=== PATIENT | female | born 1955 | race Caucasian/White ===

== ENCOUNTER 2018-01-02 12:43 | Inpatient (IN) | payer OTHER ==
[~2018-01-02] VITALS: Ht 160 cm; Wt 66.5 kg
[2018-01-02] VITALS (7 sets, daily range): BP systolic 87–122; BP diastolic 44–78
--- NOTE | ~2018-01-02 | CON ---
[place], [place] REPORT OF CONSULTATION NAME: RIMMA MEJIA UNIT #: [id number] ROOM: [facility] DOCTOR: BEN ANTON MD BIRTHDATE: [birth year] DOS: 01/02/2018 HISTORY OF PRESENT ILLNESS: A 61-year-old patient, who was presented with chief complaint of nausea, not feeling well, weakness. The patient is known aggressive alcohol consumer as late as last night, aggressive nicotine consumer as well. The patient has presented to the Emergency Room with. A basic panel of blood work was done. GFR greater than 60. Sodium 119, potassium 3.0, chloride 70, glucose of 100 and her liver function tests. Her C-reactive protein 3.8 and magnesium 1.9 and total protein 6.8, which is matching with her albumin of 2.4 as well as a low calcium of 8.2. Her chest x-ray, normal. CT scan of the abdomen and pelvis, severe hepatic steatosis and small amount of ascites. PAST MEDICAL HISTORY: She says none, but however, she is suffering from COPD secondary to her smoking habit and she apparently uses inhalers. PAST SURGICAL HISTORY: She mentions and left wrist surgical repair. SOCIAL HISTORY: At least a 2-pack of smoker and 2-6 pack beer drinker. FAMILY HISTORY: Noncontributory. ALLERGIES: PENICILLIN AND ASPIRIN. MEDICATIONS: She says none except inhalers. REVIEW OF SYSTEMS: HEENT: Denies double vision, blurred vision. RESPIRATORY: Admits to shortness of breath, cough. CARDIOVASCULAR: Denies chest pain. DIGESTIVE SYSTEM: No hematemesis, no hematochezia has been mentioned. PHYSICAL EXAMINATION: VITAL SIGNS: Stable. Alert and oriented. HEENT: Within normal limits and head nontraumatic. Eyes: Pupils round, reactive. Sclerae are icteric, conjunctiva pink. Mouth and buccal mucosa and most of her teeth extracted. No aphthae ulceration noticed. LUNGS: Anteroposterior wheezing and rhonchi. HEART: Normal sinus rhythm, no gallop, no murmur. ABDOMEN: Soft. No hepato-organomegaly edge of the liver and spleen cannot be palpated. Bowel sounds within normal limits. No rebound effect. EXTREMITIES: No cyanosis, no pedal edema. There is some stasis, dermatitis upper and lower extremities. NEUROLOGIC: Alert, oriented to time, place, person. She is not suffering from tremens. 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 We need to correct the sodium with normal saline at the present time and after adequate delivery of the saline with a sodium moiety then we will recheck the sodium level to correct his severe hyponatremia. We will also consider followup [place], [place] REPORT OF CONSULTATION NAME: RIMMA MEJIA UNIT #: [id number] ROOM: [facility] DOCTOR: SLOANE MEMBRENO,BEN BIRTHDATE: [birth year] on LFTs. Serum ammonia level, serum phosphorus level due to the concern that secondary to the rhonchi and wheezes anteroposteriorly in lung. We are going to follow up chest x-ray if anything infiltration noticed them and we will get a CT scan of the chest on her and we will feed her regular diet and we will consider a soft detox coverage for her and since her last drink was last night, and she is a daily drinker and multivitamin would be in order. We proceed with alpha fetoprotein scanning and clinical reassessment. BEN ANTON MD CM:CONSTR:REPORT OF CONSULTATION 1654 01/03/18 0245 interface
--- NOTE | ~2018-01-02 | EKG ---
[place], [place] ELECTROCARDIOGRAM REPORT NAME: RIMMA MEJIA UNIT #: [id number] ROOM: [facility] DOCTOR: LUCINDA DRAFT REPORT BIRTHDATE: [birth year] [facility] Test Date: 2018-01-02 Test Time: 13:16:41 Pat Name: RIMMA MEJIA Department: Room: [facility] Gender: F Vamp Strap Ironer: Karena Gray : 1955 Requested By: HAYES RODRIGUEZ Order Number: [id number] Reading MD: Andrea Luque MD Measurements Intervals Balm Rate: 88 P: 66 [place]: 137 QRS: -4 QRSD: 145 T: 65 QT: 408 QTc: 494 Interpretive Statements Sinus rhythm Nonspecific intraventricular conduction delay Inferior infarct, old No previous ECG available for comparison Electronically Signed On 01-03-2018 13:37:03 PDT by Andrea Luque MD CM:EKGRPT:ELECTROCARDIOGRAM REPORT 1316 1337 HAYES EDWARDS DRAFT REPORT HAEYS RODRIGUEZ DO
--- NOTE | ~2018-01-02 | O ---
[place], [place] OPERATIVE NOTE NAME: RIMMA MEJIA UNIT #: [id number] ROOM: 403 DOCTOR: BEN ANTON MD BIRTHDATE: [birth year] DOS: 01/07/2018 HISTORY OF PRESENT ILLNESS: A 62-year-old patient who has presented with chief complaint of hematemesis, anemia, guaiac positivity, and cirrhosis, etiology of alcohol. PROCEDURE: Today's procedure part of investigation is panendoscopy plus biopsy. PREMEDICATION: Propofol. SCOPE: Olympus forward-viewing gastroscope Q10 video. REPORT: After putting the patient in left lateral position and application of lubricant to the scope, the scope was introduced. Thereafter, under direct visualization, advanced through the length of esophagus without difficulty. Diffuse esophageal ulceration in cervical, thoracic, and distal esophagus identified, photographed and biopsied. Hiatal hernia of 3.5 cm was noticed. Gastric pouch was entered. Gastritis and diffuse pattern hemorrhagic type was noticed. Biopsy obtained, photographed. Duodenal bulb, second and third part within normal limits. The patient extubated, tolerated the procedure well. IMPRESSION: Diffuse esophageal ulceration secondary to reflux, hemorrhagic gastritis secondary to alcohol history. PLAN AND DISCUSSION: We are going to continue with Protonix 40 mg IV b.i.d., sucralfate 2 grams slurry q.6 hours, 2 hours before meals and at bedtime. BEN ANTON MD CM:OPRECORD:OPERATIVE NOTE 1224 [id number] BEN ANTON MD 01/07/18 1340 interface
[~2018-01-02 12:43] MED LIST: FLEXERIL10 MG PO; HYDROCODONE BIT1 T11 PO; PRILOSEC20 M1 PO; PROAIR HFA0.09 MG/AC INH; SYMBICORT1 AE1 INH; ZANTAC150 MG PO
[2018-01-02 13:31] LABS: HEMATOCRIT 29.9 % (37.0-47.0); HEMOGLOBIN 10.9 g/dl (12.0-16.0); MEAN CELL VOLUME 94.6 fl (81.0-99.0); MEAN CORPUSCULAR HGB 34.5 pg (27.0-31.0); MEAN CORPUSCULAR HGB CONC 36.5 g/dl (33.0-37.0); MEAN PLATELET VOLUME 10.5 fl (9.6-12.3); NUCLEATED RED BLOOD CELL 0.1 10*3/uL (0.0-0.0); NUCLEATED RED BLOOD CELL 1.2 % (0.0-0.0); PLATELET COUNT AUTOMATED 115 10*3/uL (130-400); RED BLOOD COUNT 3.16 10*6/uL (4.10-5.10); RED CELL DISTRI WIDTH 15.7 % (0-14.5)
[2018-01-02 13:36] LABS: INTERNATIONAL NORM RATIO 1.5 (2.0-3.5)
[2018-01-02 13:38] LABS: ACT PARTIAL THROMBO TIME 28.3 SECONDS (20.8-31.5)
[2018-01-02 13:42] LABS: ALBUMIN 2.4 gm/dl (3.1-4.5); ALKALINE PHOSPHATASE 216 U/L (45-117); BUN 12 mg/dl (7-24); CREATININE 0.63 mg/dL (0.55-1.02); LIPASE 47 U/L (73-393); SGOT/AST 156 IU/L (3-35); SGPT/ALT 56 U/L (12-78); TOTAL PROTEIN 6.8 gm/dL (6.4-8.2); TROPONIN I 0.016 ng/ml (<0.045)
[2018-01-02 13:45] LABS: PLATELET SUFFICIENCY LOW (NORMAL); TARGET CELLS MODERATE; TOTAL CELLS COUNTED 100 #CELLS
[2018-01-02 13:46] LABS: CHLORIDE 70 mmol/L (98-107); POLYCHROMASIA SLIGHT; WHITE BLOOD COUNT 10.2 10*3/uL (4.8-10.8)
[2018-01-02 13:47] LABS: SODIUM 119 mmol/L (136-145)
[2018-01-02 17:45] LABS: BILIRUBIN 3+ (NEGATIVE); BLOOD 2+ (NEGATIVE); CLARITY SL CLOUDY (CLEAR); COLOR ORANGE (YELLOW); GLUCOSE TRACE (NEGATIVE); KETONE 1+ (NEGATIVE); NITRITE POSITIVE (NEGATIVE); PH 6.5 (5.0-9.0); SPECIFIC GRAVITY <= 1.005 (1.005-1.030); UROBILINOGEN >= 8.0 E.U./dl (0.2-1.0)
[2018-01-02 17:58] LABS: LEUKO ESTERASE TRACE (NEGATIVE)
[2018-01-02 17:59] LABS: BACTERIA 1+; EPITHELIAL CELLS TNTC; URINE AMPHETAMINES < 1000 (1000ng/ml); URINE BARBITURATES < 200 (200ng/ml); URINE BENZODIAZEPINES < 200 (200ng/ml); URINE CANNABINOIDS (THC) < 50 (50ng/ml); URINE COCAINE < 300 (300ng/ml); URINE METHADONE < 300 (300ng/ml); URINE OPIATES < 300 (300ng/ml)
[2018-01-02 18:01] LABS: URINE CHLORIDE, RANDOM < 10 mmol/L; URINE PHENCYCLIDINE < 25 (25ng/ml)
[2018-01-02 19:55] LABS: BUN 13 mg/dl (7-24); CHLORIDE 77 mmol/L (98-107); CREATININE 0.51 mg/dL (0.55-1.02); SODIUM 123 mmol/L (136-145)
[2018-01-02 20:04] LABS: POTASSIUM 4.3 mmol/L (3.5-5.1)
[2018-01-03 04:00] VITALS: BP 104/46
[2018-01-03 06:00] LABS: MEAN CELL VOLUME 94.4 fl (81.0-99.0); MEAN CORPUSCULAR HGB 34.7 pg (27.0-31.0); MEAN CORPUSCULAR HGB CONC 36.7 g/dl (33.0-37.0); MEAN PLATELET VOLUME 11.6 fl (9.6-12.3); NUCLEATED RED BLOOD CELL 0.2 10*3/uL (0.0-0.0); NUCLEATED RED BLOOD CELL 2.1 % (0.0-0.0); PLATELET COUNT AUTOMATED 90 10*3/uL (130-400); RED BLOOD COUNT 2.51 10*6/uL (4.10-5.10); RED CELL DISTRI WIDTH 15.9 % (0-14.5); WHITE BLOOD COUNT 7.7 10*3/uL (4.8-10.8)
[2018-01-03 06:03] LABS: HEMATOCRIT 23.7 % (37.0-47.0); HEMOGLOBIN 8.7 g/dl (12.0-16.0)
[2018-01-03 06:06] LABS: ACT PARTIAL THROMBO TIME 30.3 SECONDS (20.8-31.5); INTERNATIONAL NORM RATIO 1.6 (2.0-3.5)
[2018-01-03 06:09] LABS: ALBUMIN 1.9 gm/dl (3.1-4.5); BUN 12 mg/dl (7-24); CHLORIDE 76 mmol/L (98-107); HDL CHOLESTEROL 11 mg/dl (40-60); POTASSIUM 3.5 mmol/L (3.5-5.1); SODIUM 123 mmol/L (136-145)
[2018-01-03 06:18] LABS: ALKALINE PHOSPHATASE 164 U/L (45-117); CHOLESTEROL 63 mg/dL (<200); CREATININE 0.53 mg/dL (0.55-1.02); FREE T4 1.23 ng/dl (0.76-1.46); LDL CHOLESTEROL 34 mg/dL (9-159); PHOSPHOROUS 1.9 mg/dL (2.5-4.9); SGOT/AST 118 IU/L (3-35); SGPT/ALT 40 U/L (12-78); TOTAL PROTEIN 5.5 gm/dL (6.4-8.2); TRIGLYCERIDES 89 mg/dl (<150); VLDL CHOLESTEROL 18 mg/dL (6-40)
[2018-01-03 06:53] LABS: PLATELET SUFFICIENCY LOW (NORMAL); POLYCHROMASIA SLIGHT; TARGET CELLS MODERATE; TOTAL CELLS COUNTED 100 #CELLS
[2018-01-03 08:00] VITALS: BP 107/48
[2018-01-03 12:00] VITALS: BP 112/43
[2018-01-03 16:00] VITALS: BP 105/42
[2018-01-03 20:00] VITALS: BP 90/48
[2018-01-04] VITALS: BP 90/52
[2018-01-04 04:00] VITALS: BP 102/45
[2018-01-04 06:21] LABS: HEMATOCRIT 21.1 % (37.0-47.0); HEMOGLOBIN 7.7 g/dl (12.0-16.0); MEAN CELL VOLUME 95.5 fl (81.0-99.0); MEAN CORPUSCULAR HGB 34.8 pg (27.0-31.0); MEAN CORPUSCULAR HGB CONC 36.5 g/dl (33.0-37.0); MEAN PLATELET VOLUME 10.9 fl (9.6-12.3); NUCLEATED RED BLOOD CELL 0.1 10*3/uL (0.0-0.0); NUCLEATED RED BLOOD CELL 1.8 % (0.0-0.0); PLATELET COUNT AUTOMATED 78 10*3/uL (130-400); RED BLOOD COUNT 2.21 10*6/uL (4.10-5.10); RED CELL DISTRI WIDTH 16.7 % (0-14.5)
[2018-01-04 06:46] LABS: ALBUMIN 1.7 gm/dl (3.1-4.5); ALKALINE PHOSPHATASE 137 U/L (45-117); BUN 11 mg/dl (7-24); CHLORIDE 84 mmol/L (98-107); CREATININE 0.51 mg/dL (0.55-1.02); PHOSPHOROUS 2.1 mg/dL (2.5-4.9); POTASSIUM 3.3 mmol/L (3.5-5.1); SGOT/AST 95 IU/L (3-35); SGPT/ALT 36 U/L (12-78); SODIUM 128 mmol/L (136-145)
[2018-01-04 06:51] LABS: TOTAL CELLS COUNTED 100 #CELLS
[2018-01-04 06:52] LABS: PLATELET SUFFICIENCY LOW (NORMAL); POLYCHROMASIA SLIGHT; TARGET CELLS MODERATE
[2018-01-04 08:00] VITALS: BP 103/48
[2018-01-04 12:00] VITALS: BP 84/42
[2018-01-04 16:00] VITALS: BP 96/45
[2018-01-04 20:00] VITALS: BP 88/48
[2018-01-05] VITALS (12 sets, daily range): BP systolic 86–104; BP diastolic 40–59
[2018-01-05 06:12] LABS: ALBUMIN 1.7 gm/dl (3.1-4.5); ALKALINE PHOSPHATASE 136 U/L (45-117); BUN 8 mg/dl (7-24); CHLORIDE 89 mmol/L (98-107); HEMOGLOBIN 6.9 g/dl (12.0-16.0); MEAN CORPUSCULAR HGB 34.5 pg (27.0-31.0); MEAN CORPUSCULAR HGB CONC 36.3 g/dl (33.0-37.0); MEAN PLATELET VOLUME 10.8 fl (9.6-12.3); NUCLEATED RED BLOOD CELL 0.1 10*3/uL (0.0-0.0); NUCLEATED RED BLOOD CELL 1.7 % (0.0-0.0); PHOSPHOROUS 3.1 mg/dL (2.5-4.9); PLATELET COUNT AUTOMATED 72 10*3/uL (130-400); RED CELL DISTRI WIDTH 17.2 % (0-14.5); SGOT/AST 94 IU/L (3-35); SGPT/ALT 33 U/L (12-78); SODIUM 128 mmol/L (136-145); TOTAL PROTEIN 4.7 gm/dL (6.4-8.2); WHITE BLOOD COUNT 8.2 10*3/uL (4.8-10.8)
[2018-01-05 06:29] LABS: POTASSIUM 4.4 mmol/L (3.5-5.1)
[2018-01-05 07:03] LABS: BASOPHILS 1 % (0-1); PLATELET SUFFICIENCY LOW (NORMAL); POLYCHROMASIA SLIGHT; TARGET CELLS FEW; TOTAL CELLS COUNTED 100 #CELLS
[2018-01-05 16:26] LABS: VITAMIN D, 25-HYDROXY 11.7 ng/mL (30-100)
[2018-01-06] VITALS: BP 104/56
[2018-01-06 04:00] VITALS: BP 102/51
[2018-01-06 05:51] LABS: ALBUMIN 1.8 gm/dl (3.1-4.5); BUN 7 mg/dl (7-24); CHLORIDE 94 mmol/L (98-107); CREATININE 0.44 mg/dL (0.55-1.02); PHOSPHOROUS 2.3 mg/dL (2.5-4.9); POTASSIUM 4.3 mmol/L (3.5-5.1); SGOT/AST 112 IU/L (3-35); SODIUM 130 mmol/L (136-145)
[2018-01-06 05:53] LABS: ALKALINE PHOSPHATASE 149 U/L (45-117); SGPT/ALT 35 U/L (12-78); TOTAL PROTEIN 4.9 gm/dL (6.4-8.2)
[2018-01-06 07:38] LABS: BASO # 0.1 10*3/uL (0.0-0.1); BASO % 0.7 % (0.0-1.0); EOS # 0.2 10*3/uL (0.0-0.4); EOS % 1.6 % (1.0-4.0); HEMATOCRIT 24.2 % (37.0-47.0); HEMOGLOBIN 8.6 g/dl (12.0-16.0); LYMPH # 2.8 10*3/uL (1.3-4.4); LYMPH % 26.3 % (27.0-41.0); MEAN CELL VOLUME 96.8 fl (81.0-99.0); MEAN CORPUSCULAR HGB 34.4 pg (27.0-31.0); MEAN CORPUSCULAR HGB CONC 35.5 g/dl (33.0-37.0); MEAN PLATELET VOLUME 11.6 fl (9.6-12.3); MONO # 1.4 10*3/uL (0.1-1.0); MONO % 13.4 % (3.0-9.0); NEUT % 56.5 % (47.0-73.0); NUCLEATED RED BLOOD CELL 0.1 10*3/uL (0.0-0.0); NUCLEATED RED BLOOD CELL 0.9 % (0.0-0.0); PLATELET COUNT AUTOMATED 90 10*3/uL (130-400); RED CELL DISTRI WIDTH 18.9 % (0-14.5); WHITE BLOOD COUNT 10.7 10*3/uL (4.8-10.8)
[2018-01-06 08:00] VITALS: BP 100/46
[2018-01-06 11:55] VITALS: BP 104/56
[2018-01-06 16:00] VITALS: BP 122/56
[2018-01-06 20:00] VITALS: BP 149/63
[2018-01-07] VITALS (8 sets, daily range): BP systolic 107–139; BP diastolic 56–75
[2018-01-07 06:09] LABS: BASO # 0.1 10*3/uL (0.0-0.1); BASO % 0.8 % (0.0-1.0); EOS # 0.1 10*3/uL (0.0-0.4); EOS % 1.4 % (1.0-4.0); HEMATOCRIT 24.5 % (37.0-47.0); HEMOGLOBIN 8.6 g/dl (12.0-16.0); LYMPH # 2.9 10*3/uL (1.3-4.4); LYMPH % 30.9 % (27.0-41.0); MEAN CELL VOLUME 97.2 fl (81.0-99.0); MEAN CORPUSCULAR HGB 34.1 pg (27.0-31.0); MEAN CORPUSCULAR HGB CONC 35.1 g/dl (33.0-37.0); MEAN PLATELET VOLUME 10.7 fl (9.6-12.3); MONO # 1.3 10*3/uL (0.1-1.0); MONO % 13.8 % (3.0-9.0); NEUT # 4.9 10*3/uL (2.3-7.9); NEUT % 51.5 % (47.0-73.0); NUCLEATED RED BLOOD CELL 0.1 10*3/uL (0.0-0.0); NUCLEATED RED BLOOD CELL 0.5 % (0.0-0.0); PLATELET COUNT AUTOMATED 93 10*3/uL (130-400); RED BLOOD COUNT 2.52 10*6/uL (4.10-5.10); RED CELL DISTRI WIDTH 18.2 % (0-14.5); WHITE BLOOD COUNT 9.5 10*3/uL (4.8-10.8)
[2018-01-07 06:29] LABS: BUN 8 mg/dl (7-24); CHLORIDE 96 mmol/L (98-107); CREATININE 0.37 mg/dL (0.55-1.02); PHOSPHOROUS 2.9 mg/dL (2.5-4.9); SODIUM 133 mmol/L (136-145)
[2018-01-08] VITALS: BP 137/71
[2018-01-08 06:53] LABS: BASO # 0.1 10*3/uL (0.0-0.1); BASO % 0.7 % (0.0-1.0); EOS # 0.1 10*3/uL (0.0-0.4); EOS % 1.2 % (1.0-4.0); HEMATOCRIT 25.7 % (37.0-47.0); HEMOGLOBIN 8.7 g/dl (12.0-16.0); LYMPH # 2.4 10*3/uL (1.3-4.4); LYMPH % 32.7 % (27.0-41.0); MEAN CELL VOLUME 98.1 fl (81.0-99.0); MEAN CORPUSCULAR HGB 33.2 pg (27.0-31.0); MEAN CORPUSCULAR HGB CONC 33.9 g/dl (33.0-37.0); MEAN PLATELET VOLUME 10.4 fl (9.6-12.3); MONO # 1.3 10*3/uL (0.1-1.0); MONO % 17.1 % (3.0-9.0); NEUT # 3.5 10*3/uL (2.3-7.9); NEUT % 47.1 % (47.0-73.0); NUCLEATED RED BLOOD CELL 0.3 % (0.0-0.0); PLATELET COUNT AUTOMATED 95 10*3/uL (130-400); RED BLOOD COUNT 2.62 10*6/uL (4.10-5.10); RED CELL DISTRI WIDTH 18.2 % (0-14.5); WHITE BLOOD COUNT 7.4 10*3/uL (4.8-10.8)
[2018-01-08 07:11] LABS: BUN 9 mg/dl (7-24); CHLORIDE 96 mmol/L (98-107); CREATININE 0.35 mg/dL (0.55-1.02); PHOSPHOROUS 2.9 mg/dL (2.5-4.9); SODIUM 132 mmol/L (136-145)
[2018-01-08 08:00] VITALS: BP 109/69
[2018-01-08 13:00] VITALS: BP 125/51
[2018-01-08 16:00] VITALS: BP 131/67
[2018-01-08 20:00] VITALS: BP 128/76
[2018-01-09] VITALS: BP 113/59; BP 88/52
[2018-01-09 06:48] LABS: BUN 11 mg/dl (7-24); CHLORIDE 96 mmol/L (98-107); CREATININE 0.34 mg/dL (0.55-1.02); POTASSIUM 3.9 mmol/L (3.5-5.1); SODIUM 133 mmol/L (136-145)
[2018-01-09 08:00] VITALS: BP 130/57
[2018-01-09] MEDS ORDERED: THERA TABLET400 MCG PO (10:27)
[2018-01-09] MEDS ORDERED: Carafate1 GM/10 ML PO (10:27)
[2018-01-09] MEDS ORDERED: PANTOPRAZOLE SO40 MG PO (10:27)
[2018-01-09] MEDS ORDERED: LASIX20 MG PO (10:27)
[2018-01-09] MEDS ORDERED: ALDACTONE25 MG PO (10:27)
[2018-01-09] MEDS ORDERED: OXYCODONE5 M1 PO (10:27)
[2018-01-09] MEDS ORDERED: NATURE'S BLEND100 M2 PO (10:27)
[2018-01-09 12:00] VITALS: BP 126/95
== END 2018-01-09 13:00 | disposition other institution (70) | DRG 432 ==
LOC: ED 12:43 → 4E 15:45 → ICCU 15:45 → EDHOLD 15:45 → ICCU 16:06 → 4E 01-06 17:49
PROVIDERS: Emergency Medicine; Internal Medicine; Internal Medicine Gastroenterology; Student in an Organized Health Care Education/Training Program
PROC: 05HY33Z Insertion of Infusion Device into Upper Vein, Percutaneous Approach (ICD-10-PCS; 2018-01-03)
PROC: B54MZZA Ultrasonography of Right Upper Extremity Veins, Guidance (ICD-10-PCS; 2018-01-03)
PROC: 30233N1 Transfusion of Nonautologous Red Blood Cells into Peripheral Vein, Percutaneous Approach (ICD-10-PCS; principal; 2018-01-05)
PROC: 0DB58ZX Excision of Esophagus, Via Natural or Artificial Opening Endoscopic, Diagnostic (ICD-10-PCS; 2018-01-07)
PROC: 0DB68ZX Excision of Stomach, Via Natural or Artificial Opening Endoscopic, Diagnostic (ICD-10-PCS; 2018-01-07)
DX: K70.31 Alcoholic cirrhosis of liver with ascites (principal); J18.9 Pneumonia, unspecified organism; E43 Unspecified severe protein-calorie malnutrition; K29.21 Alcoholic gastritis with bleeding; J44.0 Chronic obstructive pulmonary disease with (acute) lower respiratory infection; F10.29 Alcohol dependence with unspecified alcohol-induced disorder; E87.2 Acidosis; J44.1 Chronic obstructive pulmonary disease with (acute) exacerbation; I50.32 Chronic diastolic (congestive) heart failure; N39.0 Urinary tract infection, site not specified; E22.2 Syndrome of inappropriate secretion of antidiuretic hormone; E87.8 Other disorders of electrolyte and fluid balance, not elsewhere classified; E87.6 Hypokalemia; I95.9 Hypotension, unspecified; D69.6 Thrombocytopenia, unspecified; E83.39 Other disorders of phosphorus metabolism; D64.9 Anemia, unspecified; D72.810 Lymphocytopenia; R73.9 Hyperglycemia, unspecified; R74.0 Nonspecific elevation of levels of transaminase and lactic acid dehydrogenase [LDH]; K76.0 Fatty (change of) liver, not elsewhere classified; K21.0 Gastro-esophageal reflux disease with esophagitis; E83.42 Hypomagnesemia; E86.0 Dehydration; B96.20 Unspecified Escherichia coli [E. coli] as the cause of diseases classified elsewhere; R09.02 Hypoxemia; I34.0 Nonrheumatic mitral (valve) insufficiency; K44.9 Diaphragmatic hernia without obstruction or gangrene; Z72.0 Tobacco use; Z71.6 Tobacco abuse counseling; Z71.41 Alcohol abuse counseling and surveillance of alcoholic; Z88.0 Allergy status to penicillin; Z88.6 Allergy status to analgesic agent; Z79.899 Other long term (current) drug therapy; Z85.3 Personal history of malignant neoplasm of breast; Z80.41 Family history of malignant neoplasm of ovary; Z98.891 History of uterine scar from previous surgery; Z68.26 Body mass index [BMI] 26.0-26.9, adult

== ENCOUNTER → 2018-02-06 | Outpatient (CLI) | payer OTHER ==
[~2018-02-06] MED LIST changes: +ALDACTONE25 MG PO; +Carafate1 GM/10 ML PO; +LASIX20 MG PO; +NATURE'S BLEND100 M2 PO; +OXYCODONE5 M1 PO; +PANTOPRAZOLE SO40 MG PO; +THERA TABLET400 MCG PO
== END | disposition home or self-care (01) ==
LOC: RESCLI 09:00
DX: J44.9 Chronic obstructive pulmonary disease, unspecified (principal); I50.30 Unspecified diastolic (congestive) heart failure; C50.919 Malignant neoplasm of unspecified site of unspecified female breast; R52 Pain, unspecified; K70.30 Alcoholic cirrhosis of liver without ascites; D64.9 Anemia, unspecified; F10.20 Alcohol dependence, uncomplicated; F17.200 Nicotine dependence, unspecified, uncomplicated; Z71.6 Tobacco abuse counseling; Z79.899 Other long term (current) drug therapy

== ENCOUNTER 2019-05-24 20:23 | Inpatient (IN) | payer OTHER ==
[~2019-05-24] VITALS: Ht 157.4 cm; Wt 75.5 kg
[2019-05-24] VITALS (7 sets, daily range): BP systolic 94–127; BP diastolic 58–80
[2019-05-24 20:54] LABS: HEMATOCRIT 41.5 % (37.0-47.0); MEAN CELL VOLUME 91.4 fl (81.0-99.0); MEAN CORPUSCULAR HGB 30.8 pg (27.0-31.0); MEAN CORPUSCULAR HGB CONC 33.7 g/dl (33.0-37.0); MEAN PLATELET VOLUME 10.2 fl (9.6-12.3); PLATELET COUNT AUTOMATED 208 10*3/uL (130-400); RED BLOOD COUNT 4.54 10*6/uL (4.10-5.10); RED CELL DISTRI WIDTH 12.3 % (0-14.5)
[2019-05-24 21:04] LABS: ACT PARTIAL THROMBO TIME 32.4 SECONDS (20.0-32.1); INTERNATIONAL NORM RATIO 1.1 (2.0-3.5)
[2019-05-24 21:12] LABS: PLATELET SUFFICIENCY NORMAL (NORMAL); TOTAL CELLS COUNTED 100 #CELLS
--- NOTE | 2019-05-24 21:21 | NUR ---
AMIODORONE ADMINISTERED.
--- NOTE | 2019-05-24 21:24 | NUR ---
AMDIODORONE ADMINISTERED BY DR. PÉREZ.
[2019-05-24 21:29] LABS: ALBUMIN 2.8 gm/dl (3.1-4.5); ALKALINE PHOSPHATASE 113 U/L (45-117); BUN 19 mg/dl (7-24); CHLORIDE 89 mmol/L (98-107); CREATININE 0.99 mg/dL (0.55-1.02); POTASSIUM 3.2 mmol/L (3.5-5.1); SGOT/AST 15 IU/L (3-35); SGPT/ALT 12 U/L (12-78); SODIUM 126 mmol/L (136-145); TOTAL PROTEIN 7.2 gm/dL (6.4-8.2)
[2019-05-24 21:30] LABS: TROPONIN I < 0.015 ng/ml (<0.045)
[2019-05-24 22:23] LABS: BILIRUBIN NEGATIVE (NEGATIVE); CLARITY CLEAR (CLEAR); COLOR YELLOW (YELLOW); GLUCOSE NEGATIVE (NEGATIVE); KETONE NEGATIVE (NEGATIVE); SPECIFIC GRAVITY 1.005 (1.005-1.030)
[2019-05-24 22:24] LABS: BLOOD TRACE-INTACT (NEGATIVE); LEUKO ESTERASE NEGATIVE (NEGATIVE); NITRITE NEGATIVE (NEGATIVE); PH 6.5 (5.0-9.0); UROBILINOGEN 0.2 E.U./dl (0.2-1.0)
[2019-05-24 22:36] LABS: RBC 0-2 rbc/hpf (0-2); WBC 0-2 wbc/hpf (0-5)
--- NOTE | 2019-05-24 23:09 | NUR ---
PT MOVED TO ROOM 1 FROM ROOM 4. CENTRAL LINE PLACEMENT IN PROGRESS PER DR. PÉREZ.
--- NOTE | 2019-05-24 23:16 | NUR ---
CENTRAL LINE SUCCESSFULLY PLACED. PT TOLERATED WELL.
--- NOTE | 2019-05-24 23:58 | NUR ---
MAGNESIUM DRIP TITRATED TO 25ML/HR PER DR. PÉREZ.
[2019-05-25] VITALS (10 sets, daily range): BP systolic 103–130; BP diastolic 41–62
--- NOTE | 2019-05-25 | NUR ---
A 63, admitted to ICCU, under the services of EUGENIA Ibrahmi DO with a diagnosis of SEPSIS. Chief complaint is PNEUMONIA. Patient arrived via bed from ER. Monitor applied. Initial assessment completed. Vital signs taken and recorded. EUGENIA IBRAHIM DO notified of admission to the unit. Orders received. See assessment for past medical history, medications and allergies. Patient and/or family oriented to unit. [facility] visitation policy reviewed. Clothing/patient valuable form completed. ORDERS RECEIVED. ANGY ARRIAGA
[2019-05-25] MEDS ORDERED: LACTULOSE10 GM/15 M PO (00:09)
[2019-05-25] MEDS ORDERED: LASIX40 MG PO (00:16)
[2019-05-25] MEDS ORDERED: SPIRONOLACTONE100 MG PO (00:17)
[2019-05-25] MEDS ORDERED: MECLIZINE HYD12.5 MG PO (00:18)
[2019-05-25] MEDS ORDERED: OXYCODONE HCL5 MG PO (00:20)
--- NOTE | 2019-05-25 00:45 | NUR ---
NEPHROLOGY ANSWER SERVICE CALLED REGARDING CONSULT FOR DR. ROWLAND. CALL BACK NUMBER PROVIDED.
--- NOTE | 2019-05-25 01:00 | NUR ---
SPOKE WITH DR. BENAVIDES REGARDING PATIENT CONSULT. PATIENT CURRENTLY ON AN AMIODARONE DRIP AT 17CC/HR. DR. BENAVIDES SAYS PATIENT CAN STAY ON AMIODARONE DRIP AND WE WILL CONTINUE TO MONITOR PATIENT ELECTROLYTE LEVELS. ECHO ORDERED.
[2019-05-25 01:06] LABS: BUN 16 mg/dl (7-24); CHLORIDE 98 mmol/L (98-107); CREATININE 0.63 mg/dL (0.55-1.02); POTASSIUM 3.2 mmol/L (3.5-5.1); SODIUM 131 mmol/L (136-145)
[2019-05-25 05:26] LABS: ALBUMIN 2.2 gm/dl (3.1-4.5); ALKALINE PHOSPHATASE 98 U/L (45-117); BUN 15 mg/dl (7-24); CHLORIDE 100 mmol/L (98-107); CHOLESTEROL 118 mg/dL (<200); CREATININE 0.58 mg/dL (0.55-1.02); FREE T4 1.48 ng/dl (0.76-1.46); HDL CHOLESTEROL 26 mg/dl (40-60); LDL CHOLESTEROL 75 mg/dL (9-159); PHOSPHOROUS 2.1 mg/dL (2.5-4.9); POTASSIUM 3.4 mmol/L (3.5-5.1); SGOT/AST 17 IU/L (3-35); SGPT/ALT 13 U/L (12-78); SODIUM 135 mmol/L (136-145); TOTAL PROTEIN 5.9 gm/dL (6.4-8.2); TRIGLYCERIDES 86 mg/dl (<150); VLDL CHOLESTEROL 17 mg/dL (6-40)
[2019-05-25 05:34] LABS: THYROID STIM HORMONE (HS) 0.733 uIU/ml (0.358-4.75)
[2019-05-25 06:04] LABS: HEMATOCRIT 38.6 % (37.0-47.0); HEMOGLOBIN 12.8 g/dl (12.0-16.0); MEAN CELL VOLUME 93.9 fl (81.0-99.0); MEAN CORPUSCULAR HGB 31.1 pg (27.0-31.0); MEAN CORPUSCULAR HGB CONC 33.2 g/dl (33.0-37.0); MEAN PLATELET VOLUME 10.7 fl (9.6-12.3); PLATELET COUNT AUTOMATED 194 10*3/uL (130-400); RED BLOOD COUNT 4.11 10*6/uL (4.10-5.10); RED CELL DISTRI WIDTH 12.6 % (0-14.5); WHITE BLOOD COUNT 30.2 10*3/uL (4.8-10.8)
[2019-05-25 06:23] LABS: ACT PARTIAL THROMBO TIME 36.5 SECONDS (20.0-32.1)
[2019-05-25 06:32] LABS: TOTAL CELLS COUNTED 100 #CELLS
[2019-05-25 06:33] LABS: BURR CELLS MODERATE; PLATELET SUFFICIENCY NORMAL (NORMAL)
[2019-05-25 06:54] LABS: VITAMIN D, 25-HYDROXY 25.6 ng/mL (30-100)
--- NOTE | 2019-05-25 08:45 | NUR ---
DR ROWLAND CALLED IN REGARDING PT. UPDATED HIM ON PT'S CONDITION AND PLAN OF CARE. NEW ORDERS RECEIVED.
--- NOTE | 2019-05-25 08:50 | NUR ---
SPEECH PATHOLOGY Nursing screen complete. This dept. will be available for consult as needed. ROSELIA MCLAUGHLIN MSCCC-POLICE WORKER
--- NOTE | 2019-05-25 08:50 | NUR ---
DR PARIKH IN TO SEE PT.
--- NOTE | 2019-05-25 11:11 | NUR ---
AZITHROMYCIN INFUSION COMPLETE. DISCONNECTED, LINE FLSHED, SWAB CAP APPLIED.
--- NOTE | 2019-05-25 11:40 | NUR ---
DR BENAVIDES IN TO SEE PT. NEW ORDERS RECEIVED.
--- NOTE | 2019-05-25 12:06 | NUR ---
PT RESTING. POTASSIUM PHOSPHATE INFUSION COMPLETED. PT TOLERATED INFUSION WELL.
--- NOTE | 2019-05-25 13:27 | NUR ---
Vision Specialist in to talk to patient. Patient states lives at home with her boyfriend, daughter, son-in-law, and 3 grandchildren. There are 0 steps in the home. Physician: no family physician Pharmacy: [facility] Home health services: [facility] Patient's level of ADLs: MINIMAL ASSIST Patient has working utilities: yes DME: walker, cane, O2 @ 2-4L nc Follow-up physician's appointment after d/c: will be made by the hospitalist nurse director upon discharge Does patient want to access PORTAL?: no Discharge plan discussed with patient. She lives at home with her boyfriend, daughter, son-in-law, and 3 grandchildren. She states she is independent in her ADLs and has a walker and a cane but doesn't use it. When medically stable she will be discharged to home. She states she will have to reapply for hospice. Her daughter will provide transportation on discharge. TIM FARLEY
--- NOTE | 2019-05-25 13:30 | NUR ---
SPOKE WITH PHARMACIST EARLIER R/T WHEN TO D/C AMIODARONE GTT R/T TOPROL. TOPROL GIVEN EARLIER. AMIODARONE GTT NOW D/C'D PER ORDER. PT RESTING. PT DENIES COMPLAINTS.
--- NOTE | 2019-05-25 16:26 | NUR ---
PT VISITING WITH HER FAMILY. NO ACUTE DISTRESS NOTED.
--- NOTE | 2019-05-25 16:55 | NUR ---
MEDICATED PT PER PRN ORDER WITH OXYCODONE FOR C/O PAIN "ALL OVER" THAT RATES 8/10 ON PAIN SCALE.
--- NOTE | 2019-05-25 17:30 | NUR ---
PT STATES RELIEF OF PAIN WITH EARLIER PRN MED.
[2019-05-25] MEDS ORDERED: ROXICODONE5 MG PO ×2 (17:36→17:37)
[2019-05-25] MEDS ORDERED: ATIVAN0.5 MG PO (18:21)
--- NOTE | 2019-05-25 20:06 | NUR ---
PT. RESTING IN BED. PERIODS OF CONFUSION NOTED. HEP LOCK IN LA ASYMPT. RIGHT SCL MLC INTACT. LUNGS DIMINISHED BILAT, PULSE OX 93% ON RA. 0XYGEN BENEATH PATIENTS CHIN. PATENT STATED SHE IS TAKING A "BREAK" FROM OXYGEN. MOIST SOYFREEZE OPERATOR COUGH NOTED. NO PERIPHERAL EDEMA NOTED. RESP. EASY AND REG AT REST, NO DISTRESS. TANYA LOWE RN
--- NOTE | 2019-05-25 22:18 | NUR ---
ROXICODONE, RESTORIL AND ATIVAN GIVEN AT 2117 ORDERED PER PT REQUEST. PT. CURRENTLY SLEEPING, ABOVE EFFECTIVE FOR PAIN, SLEEP AND ANXIETY. ATNYA LOWE RN
[2019-05-26] VITALS: BP 115/49
[2019-05-26 01:58] LABS: BILIRUBIN NEGATIVE (NEGATIVE); BLOOD NEGATIVE (NEGATIVE); CLARITY CLEAR (CLEAR); COLOR YELLOW (YELLOW); GLUCOSE NEGATIVE (NEGATIVE); KETONE NEGATIVE (NEGATIVE); LEUKO ESTERASE NEGATIVE (NEGATIVE); NITRITE NEGATIVE (NEGATIVE)
[2019-05-26 03:05] LABS: WBC 0-2 wbc/hpf (0-5)
[2019-05-26 03:06] LABS: RBC 0-2 rbc/hpf (0-2)
[2019-05-26 04:00] VITALS: BP 113/51
[2019-05-26 05:09] LABS: BUN 9 mg/dl (7-24); CHLORIDE 100 mmol/L (98-107); CREATININE 0.64 mg/dL (0.55-1.02); PHOSPHOROUS 1.7 mg/dL (2.5-4.9); POTASSIUM 3.2 mmol/L (3.5-5.1); SODIUM 135 mmol/L (136-145)
[2019-05-26 05:53] LABS: HEMATOCRIT 33.6 % (37.0-47.0); MEAN CELL VOLUME 94.4 fl (81.0-99.0); MEAN CORPUSCULAR HGB 30.9 pg (27.0-31.0); MEAN CORPUSCULAR HGB CONC 32.7 g/dl (33.0-37.0); MEAN PLATELET VOLUME 10.9 fl (9.6-12.3); PLATELET COUNT AUTOMATED 207 10*3/uL (130-400); RED BLOOD COUNT 3.56 10*6/uL (4.10-5.10); RED CELL DISTRI WIDTH 12.7 % (0-14.5); WHITE BLOOD COUNT 20.3 10*3/uL (4.8-10.8)
[2019-05-26 07:00] LABS: TOTAL CELLS COUNTED 100 #CELLS
[2019-05-26 07:01] LABS: PLATELET SUFFICIENCY NORMAL (NORMAL)
[2019-05-26 08:00] VITALS: BP 133/58
--- NOTE | 2019-05-26 09:00 | NUR ---
Local Intermodal Truck Driver in to see patient. No new needs or request. She denies any home needs at this time. When medically stable she will be discharged to home. If she wants hospice again at home she states [facility] told her she would have to reapply.
--- NOTE | 2019-05-26 09:51 | NUR ---
PHYSICAL THERAPY Screen received pt is from home with family admitted w sepsis, UTI, SVT. Please consult PT if pt has a decline in functional status from baseline Per case managment note though possible hospice at discharge. Amy Taylor PT
--- NOTE | 2019-05-26 09:57 | NUR ---
PATIENT REQUESTING ATIVAN AND PAIN PILL. MEDICATED WITH ATIVAN AND ROXICODONE PER PRN ORDERS. WILL CONTINUE TO MONITOR.
[2019-05-26 12:00] VITALS: BP 127/63
--- NOTE | 2019-05-26 12:18 | NUR ---
FLUTTER VALVE INSTRUCTED TO PT. PT DEMONSTRATED AN UNDERSTANDING AND HAD NO QUESTIONS OR CONCERNS.
--- NOTE | 2019-05-26 13:33 | NUR ---
Nursing screen received and chart reviewed. Patient admitted for SOB, PNA, and sepsis. Per chart review, patient may return home with continued hospice care. If patient has a decline in ADLs or transfers, please send OT orders. Thank you. Kim Tavarez OTR/L
[2019-05-26 16:00] VITALS: BP 104/52
--- NOTE | 2019-05-26 16:18 | NUR ---
PT REQUESTED AND WAS MEDICATED WITH OXICODONE FOR C/O GENERALIZED PAIN. CALL LIGHT IN REACH. WILL MONITOR
--- NOTE | 2019-05-26 19:55 | NUR ---
PATIENT RESTING WITH NO NEEDS MADE. BED IN LOWEST POSITION, CALL LIGHT IN REACH
[2019-05-26 20:00] VITALS: BP 113/50
--- NOTE | 2019-05-26 21:47 | NUR ---
MEDICATED WITH PRN OXI AND XANAX FOR C/O PAIN AND ANXIOUSNESS. PATIENT STATES "THESE MEDICATIONS THAT YOU ALL ARE GIVING ME IS STUPID. THIS HEART MONITOR IS STUPID.". PATIENT IS VISIBLY SHORT OF BREATH BUT IS REFUSING TO WEAR HER NASAL CANNULA AT THIS TIME.
--- NOTE | 2019-05-26 22:02 | NUR ---
MEDICATED WITH PRN RESTORIL FOR C/O SLEEPLESSNESS. WILL MONITOR
--- NOTE | 2019-05-26 22:05 | NUR ---
PATIENT REFUSING NASAL CANNULA AT THIS TIME. EDUCATED ON THE IMPORTANCE OF KEEPING IT ON. PATIENT VERBALIZED UNDERSTANDING BUT CONTINUES TO REFUSE
[2019-05-27] VITALS: BP 112/59
--- NOTE | 2019-05-27 05:22 | NUR ---
PATIENT HAS NASAL CANNULA DOWN AROUND HER CHIN. REFUSING TO PUT IT ON CORRECTLY AT THIS TIME.
[2019-05-27 06:39] LABS: HEMATOCRIT 36.8 % (37.0-47.0); MEAN CELL VOLUME 95.3 fl (81.0-99.0); MEAN CORPUSCULAR HGB 31.1 pg (27.0-31.0); MEAN CORPUSCULAR HGB CONC 32.6 g/dl (33.0-37.0); MEAN PLATELET VOLUME 10.7 fl (9.6-12.3); PLATELET COUNT AUTOMATED 252 10*3/uL (130-400); RED BLOOD COUNT 3.86 10*6/uL (4.10-5.10); RED CELL DISTRI WIDTH 12.9 % (0-14.5); WHITE BLOOD COUNT 15.3 10*3/uL (4.8-10.8)
[2019-05-27 06:48] LABS: BUN 5 mg/dl (7-24); CHLORIDE 99 mmol/L (98-107); CREATININE 0.55 mg/dL (0.55-1.02); POTASSIUM 4.1 mmol/L (3.5-5.1); SODIUM 134 mmol/L (136-145)
[2019-05-27 07:10] LABS: TOTAL CELLS COUNTED 100 #CELLS
[2019-05-27 07:11] LABS: PLATELET SUFFICIENCY NORMAL (NORMAL)
--- NOTE | 2019-05-27 07:30 | NUR ---
Shift chart check completed.
[2019-05-27 08:00] VITALS: BP 114/60
--- NOTE | 2019-05-27 08:30 | NUR ---
Credit Risk Officer in to see patient. No new needs or request. Discussed discharge planning and she is unsure whether she wants to resume [facility] when she returns home. She would like to find a local physician. Discussed the resident clinic at the hospital with her and she would like to think about it. When medically stable she will be discharged to home.
--- NOTE | 2019-05-27 10:05 | NUR ---
PO ATIVAN & OXY GIVEN FOR GEN PAIN
--- NOTE | 2019-05-27 11:00 | NUR ---
PATIENT SLEEPING WITH O2 OFF & SHE DOESN'T WANT TOLD TO WEAR IT
[2019-05-27 12:00] VITALS: BP 110/64
--- NOTE | 2019-05-27 13:30 | NUR ---
OXY GIVEN FOR PAIN - FEELING BETTER SINCE ADMISSION
[2019-05-27 15:42] VITALS: BP 108/58
--- NOTE | 2019-05-27 17:31 | NUR ---
PAIN PILLS GIVEN FOR GENERALIZED PAIN NUNO IN BACK. RATES 08/31
--- NOTE | 2019-05-27 19:54 | NUR ---
PATIENT RESTING IN BED WITH NO NEEDS MADE. DOING BREATHING TREATMENT AT THIS TIME. BED IN LOWEST POSITION, CALL LIGHT IN REACH
[2019-05-27 20:00] VITALS: BP 120/59
--- NOTE | 2019-05-27 21:47 | NUR ---
MEDICATED WITH PRN RESTORIL, ATIVAN, AND MARK FOR C/O PAIN, ANXIETY, AND SLEEPLESSNESS. WILL MONITOR
--- NOTE | 2019-05-27 22:05 | NUR ---
PATIENT REFUSING TO WEAR OXYGEN AT THIS TIME
[2019-05-28] VITALS: BP 157/75
--- NOTE | 2019-05-28 01:22 | NUR ---
24 HR chart check completed.
[2019-05-28 07:00] LABS: HEMOGLOBIN 13.1 g/dl (12.0-16.0); MEAN CELL VOLUME 95.1 fl (81.0-99.0); MEAN CORPUSCULAR HGB 30.4 pg (27.0-31.0); MEAN PLATELET VOLUME 10.3 fl (9.6-12.3); PLATELET COUNT AUTOMATED 314 10*3/uL (130-400); RED BLOOD COUNT 4.31 10*6/uL (4.10-5.10); RED CELL DISTRI WIDTH 12.9 % (0-14.5); WHITE BLOOD COUNT 13.1 10*3/uL (4.8-10.8)
[2019-05-28 07:30] LABS: PLATELET SUFFICIENCY NORMAL (NORMAL); TOTAL CELLS COUNTED 100 #CELLS
--- NOTE | 2019-05-28 07:30 | NUR ---
TOOK OVER CARE OF PT. PT SITTING UP IN BED. EYES OPEN. ALERT AND ORIENTED. RESPIRATIONS UNLABORED ON 2L NC. PT DENIES ANY COMPLAINTS. ALL NEEDS MET. CALL LIGHT IN REACH.
[2019-05-28 07:31] LABS: ALBUMIN 2.4 gm/dl (3.1-4.5); BUN 5 mg/dl (7-24); BURR CELLS FEW; CHLORIDE 98 mmol/L (98-107); PHOSPHOROUS 2.8 mg/dL (2.5-4.9); POTASSIUM 4.3 mmol/L (3.5-5.1); SODIUM 133 mmol/L (136-145)
[2019-05-28 07:39] LABS: CREATININE 0.61 mg/dL (0.55-1.02)
--- NOTE | 2019-05-28 08:11 | NUR ---
Consider an IV to PO interchange for this patient's IV Azithromycin. She is ordered and tolerating meds and diet by mouth. She is afebrile > 24 hrs and her WBC has decreased X 4. If deemed clinically appropriate, consider switching to Azithromycin 250-500 mg PO daily.
--- NOTE | 2019-05-28 08:59 | NUR ---
PT GIVEN OXYCODONE AND ATIVAN PER REQUEST FOR GENERALIZED PAIN AND ANXIETY. ALL OTHER MEDICATIONS TAKEN WITH EASE. WILL MONITOR FOR EFFECTIVENESS. CALL LIGHT IN REACH.
--- NOTE | 2019-05-28 09:59 | NUR ---
OXYCODONE AND ATIVAN EFFECTIVE PER PT.
--- NOTE | 2019-05-28 11:00 | NUR ---
Microbiology Lab Manager in to see patient. No new needs or request at this time. She would like to follow up with the resident clinic and have them prescribe her anything that she would need at home. When medically stable she will be discharged to home.
[2019-05-28 12:00] VITALS: BP 119/76; BP 122/54; BP 152/68
[2019-05-28 14:09] LABS: ADENOVIRUS Negative (Negative); INFLUENZA A Negative (Negative); INFLUENZA B Negative (Negative); METAPNEUMOVIRUS Negative (Negative); PARAINFLUENZA 1 Negative (Negative); PARAINFLUENZA 2 Negative (Negative); PARAINFLUENZA 3 Negative (Negative); RHINOVIRUS Negative (Negative); RSV A Negative (Negative); RSV B Negative (Negative)
[2019-05-28 16:00] VITALS: BP 122/55
--- NOTE | 2019-05-28 17:02 | NUR ---
OXYCODONE GIVEN FOR PAIN. WILL MONITOR FOR EFFECTIVENESS. CALL LIGHT IN REACH.
--- NOTE | 2019-05-28 18:02 | NUR ---
OXYCODONE EFFECTIVE PER PT.
[2019-05-28 20:00] VITALS: BP 109/63
--- NOTE | 2019-05-28 21:19 | NUR ---
PATIENT MEDICATED WITH PRN ATIVAN FOR ANXIOUSNESS, RESTORIL FOR RESTLESSNESS, AND OXY FOR PAIN. WILL MONITOR. BED ALARM ON, CALL LIGHTIN REACH
--- NOTE | 2019-05-28 21:20 | NUR ---
PATIENT REFUSING TO WEAR OXYGEN AT THIS TIME. SHORTNESS OF BREATH NOTED WHILE SITTING UP IN BED TAKING MEDICATIONS
[2019-05-29] VITALS: BP 130/58
--- NOTE | 2019-05-29 06:19 | NUR ---
PATIENT SITTING UP IN BED AND BEING RUDE TO THIS RN AND MANAGER OF FINANCE. STATES THAT NOTHING HERE IS DONE RIGHT AND THAT HER "DOCTOR IS AN IDIOT". PATIENT HAS A HARSH COUGH AND IS VISIBLY SHORT OF BREATH. REFUSING NASAL CANNULA AT THIS TIME. BED IN LOWEST POSITION, CALL LIGHT IN REACH
[2019-05-29 06:34] LABS: HEMOGLOBIN 12.5 g/dl (12.0-16.0); MEAN CELL VOLUME 93.5 fl (81.0-99.0); MEAN CORPUSCULAR HGB CONC 32.1 g/dl (33.0-37.0); MEAN PLATELET VOLUME 9.5 fl (9.6-12.3); PLATELET COUNT AUTOMATED 352 10*3/uL (130-400); RED BLOOD COUNT 4.17 10*6/uL (4.10-5.10); RED CELL DISTRI WIDTH 12.8 % (0-14.5); WHITE BLOOD COUNT 13.3 10*3/uL (4.8-10.8)
[2019-05-29 07:00] LABS: ALBUMIN 2.3 gm/dl (3.1-4.5); BUN 5 mg/dl (7-24); CHLORIDE 98 mmol/L (98-107); CREATININE 0.57 mg/dL (0.55-1.02); PHOSPHOROUS 3.6 mg/dL (2.5-4.9); POTASSIUM 4.5 mmol/L (3.5-5.1); SODIUM 134 mmol/L (136-145)
[2019-05-29 07:39] LABS: PLATELET SUFFICIENCY NORMAL (NORMAL); TOTAL CELLS COUNTED 100 #CELLS
--- NOTE | 2019-05-29 08:00 | NUR ---
TOOK OVER CARE OF PT. PT SITTING UP IN BED. ALERT ORIENTED AND COOPERATIVE WITH NO COMPLAINTS AT THIS TIME. SUPPLEMENTAL OXYGEN IN PLACE VIA 2L NC. RESPIRATIONS ARE EASY AND UNLABORED. PT GIVEN SCHEDULED AM MEDICATIONS. WILL CONTINUE TO MONITOR. CALL LIGHT IN REACH.
--- NOTE | 2019-05-29 09:20 | NUR ---
PT GIVEN OXYCODONE 10 MG PER EMAR PRN ORDERS FOR PAIN. PT ALSO GIVEN ATIVAN 0.5MG PO AT THIS TIME FOR ANXIETY. WILL MONITOR FOR EFFECTIVENESS. CALL LIGHT IN REACH.
[2019-05-29 09:26] VITALS: BP 130/82
--- NOTE | 2019-05-29 10:20 | NUR ---
PRN MEDS EFFECTIVE PER PT.
[2019-05-29 12:00] VITALS: BP 111/60
--- NOTE | 2019-05-29 12:33 | NUR ---
DR. PARIKH AND DR. BENAVIDES BOTH CALLED REGARDING STRESS AND BRONCH SCHEDULED FOR FRIDAY. THESE BOTH ARE TO REMAIN SCHEDULED.
[2019-05-29 16:00] VITALS: BP 127/57
--- NOTE | 2019-05-29 18:43 | NUR ---
PT GIVEN OXYCODONE 10 MG PER EMAR PRN ORDERS FOR C/O GENERALIZED PAIN. WILL MONITOR FOR EFFECTIVENESS. CALL LIGHT IN REACH.
--- NOTE | 2019-05-29 19:43 | NUR ---
PRN OXYCODONE EFFECTIVE PER PT.
[2019-05-29 20:00] VITALS: BP 116/57
[2019-05-29 20:00] LABS: BILIRUBIN NEGATIVE (NEGATIVE); BLOOD NEGATIVE (NEGATIVE); CLARITY CLOUDY (CLEAR); COLOR YELLOW (YELLOW); GLUCOSE NEGATIVE (NEGATIVE); KETONE NEGATIVE (NEGATIVE)
[2019-05-29 20:01] LABS: LEUKO ESTERASE NEGATIVE (NEGATIVE); NITRITE NEGATIVE (NEGATIVE); UROBILINOGEN 0.2 E.U./dl (0.2-1.0)
--- NOTE | 2019-05-29 20:15 | NUR ---
IN PT ROOM TO COMPLETE ASSESSMENT. PT DENIES BEING SOB AND REFUSES TO WEAR HER NASAL CANNULA AT 2L, SHE STATES "SHE DOESNT NEED IT". URINE IS COLLECTED. CALL LIGHT WITHIN REACH, WILL CONTINUE TO MONITOR
--- NOTE | 2019-05-29 21:35 | NUR ---
PT REQUESTING RESTORIL TO HELP HER SLEEP, OXYCODONE FOR PAIN RATED 10/10 AND ATIVAN. PRN ATIVAN PO, RESTORIL PO AND OXYCODONE PO IS GIVEN AT THIS TIME. WILL CONTINUE TO MONITOR, CALL LIGHT WITHIN REACH
[2019-05-30] VITALS: BP 131/84
--- NOTE | 2019-05-30 00:15 | NUR ---
24 HR chart check completed.
[2019-05-30 05:59] LABS: ALBUMIN 2.3 gm/dl (3.1-4.5); ALKALINE PHOSPHATASE 168 U/L (45-117); BUN 5 mg/dl (7-24); CHLORIDE 96 mmol/L (98-107); CREATININE 0.56 mg/dL (0.55-1.02); HEMATOCRIT 36.7 % (37.0-47.0); HEMOGLOBIN 11.9 g/dl (12.0-16.0); MEAN CELL VOLUME 94.3 fl (81.0-99.0); MEAN CORPUSCULAR HGB 30.6 pg (27.0-31.0); MEAN CORPUSCULAR HGB CONC 32.4 g/dl (33.0-37.0); MEAN PLATELET VOLUME 9.8 fl (9.6-12.3); PHOSPHOROUS 4.2 mg/dL (2.5-4.9); PLATELET COUNT AUTOMATED 375 10*3/uL (130-400); POTASSIUM 4.5 mmol/L (3.5-5.1); RED BLOOD COUNT 3.89 10*6/uL (4.10-5.10); RED CELL DISTRI WIDTH 12.9 % (0-14.5); SGOT/AST 23 IU/L (3-35); SGPT/ALT 14 U/L (12-78); SODIUM 133 mmol/L (136-145); TOTAL PROTEIN 6.3 gm/dL (6.4-8.2); WHITE BLOOD COUNT 13.4 10*3/uL (4.8-10.8)
[2019-05-30 07:12] LABS: BASOPHILS 1 % (0-1); PLATELET SUFFICIENCY NORMAL (NORMAL); TOTAL CELLS COUNTED 100 #CELLS
[2019-05-30 08:00] VITALS: BP 134/62; BP 138/68
--- NOTE | 2019-05-30 09:00 | NUR ---
RESTING IN BED WATCHING TV, NO ACUTE DISTRESS NOTED. RESPIRATIONS EASY. LUNGS DIMINISHED, CLEAR. PULSE OX 91% RA. NON-PROD COUGH. REQUESTED AND RECEIVED ATIVAN AND OXY PER PRN ORDER FOR COMPLAINTS OF ANXIETY AND "ALL OVER" PAIN RATING AN 8. CALL LIGHT WITHIN REACH. WILL MONITOR
--- NOTE | 2019-05-30 10:30 | NUR ---
MEDS EFFECTIVE. SLEEPING. RESPIRATIONS EASY. O2 PRESENT AT BEDSIDE BUT NOT IN USE.
[2019-05-30 12:00] VITALS: BP 109/58
--- NOTE | 2019-05-30 14:00 | NUR ---
RESTING IN BED. NO DISTRESS NOTED. RESPIRATIONS EASY. CALL LIGHT WITHIN REACH. NO VOICED COMPLAINTS
[2019-05-30 16:00] VITALS: BP 131/65
--- NOTE | 2019-05-30 16:11 | NUR ---
REQUESTED AND RECEIVED OXY PER PRN ORDER FOR COMPLAINTS OF "ALL OVER" PAIN RATING AN 8. CALL LIGHT WITHIN REACH. WILL MONITOR FOR EFFECTIVENESS
--- NOTE | 2019-05-30 18:00 | NUR ---
MEDS EFFECTIVE. SLEEPING.
--- NOTE | 2019-05-30 19:43 | NUR ---
IN PT ROOM TO COMPLETE ASSESSMENT AND SHE WAS FINISHING UP BREATHING TREATMENT. PT HAS NO NEW COMPLAINTS AT THIS TIME. SHE STILL REFUSES TO WEAR HER OXYGEN AT 2L. SHE STATES THAT WHEN I BRING IN HER BED TIME MEDS TO BRING IN THE ATIVAN, OXYCODONE AND RESTORIL TOO. CALL LIGHT WITHIN REACH, WILL CONTINUE TO MONITOR
[2019-05-30 20:00] VITALS: BP 106/53
--- NOTE | 2019-05-30 21:13 | NUR ---
RESTORIL IS GIVEN TO HELP THE PATIENT SLEEP. OXYCODONE PRN PO GIVEN FOR THE PAIN RATED 9/10. PRN ATIVAN PO GIVEN AT THIS TIME TOO. WILL CONTINUE TO MONITOR FOR EFFECTIVENESS
[2019-05-31] VITALS: BP 126/71
--- NOTE | 2019-05-31 02:03 | NUR ---
24 HR chart check completed.
[2019-05-31 08:00] VITALS: BP 138/68
--- NOTE | 2019-05-31 09:00 | NUR ---
PATIENT TO CARDIAC REHAB FOR STRESS TEST AT THIS TIME BY WHEELCHAIR.
--- NOTE | 2019-05-31 10:45 | NUR ---
INFORMED CONSENT SIGNED FOR LEXISCAN STRESS TEST WITH DR. LAINEZ. RESTING EKG NSR, HR 88, BP 130/68. PULSE OX 93% ON 2L/NC AND EXPIRATORY WHEEZES NOTED. COMPLETED ONE MINUTE OF LEXISCAN PROTOCOL RECEIVING LEXISCAN 0.4MG OVER 10 SECONDS. PVC NOTED WITH NO ST CHANGES. PT C/O SOB. LAST RECOVERY HR 100, BP 124/64. WAITING NUCLEAR SCANNING IN STABLE CONDITION.
[2019-05-31 12:00] VITALS: BP 132/71
--- NOTE | 2019-05-31 12:02 | NUR ---
PATIENT RETURNED FROM STRESS TEST, RESUMING MEDS AND DIET, HER BRONCHOSCOPY PROCEDURE HAS BEEN POSTPONED UNTIL TOMORROW.
--- NOTE | 2019-05-31 12:35 | NUR ---
MEDICATED WITH PRN PO ATIVAN AND OXYCODONE FOR ANXIETY AND GENERALIZED BODY PAIN.
--- NOTE | 2019-05-31 13:30 | NUR ---
PRN PO OXYCODONE AND ATIVAN GIVEN EARLIER EFFECTIVE, PER PATIENT.
[2019-05-31 16:00] VITALS: BP 113/71
--- NOTE | 2019-05-31 17:12 | NUR ---
MEDICATED WITH PRN PO OXYCODONE FOR GENERALIZED AND LOWER BACK PAIN.
[2019-05-31 20:00] VITALS: BP 101/64
--- NOTE | 2019-05-31 23:31 | NUR ---
ATIVAN GIVEN FOR ANXIETY, RESTORIL GIVEN FOR INSOMNIA, OXICODONE GIVEN PER ORDER FOR PAIN RATED "7". SEE MAR.
[2019-06-01] VITALS (9 sets, daily range): BP systolic 102–160; BP diastolic 53–82
--- NOTE | 2019-06-01 00:01 | NUR ---
24 HR chart check completed.
--- NOTE | 2019-06-01 00:30 | NUR ---
ATIVAN EFFECTIVE FOR ANXIETY, RESTORIL EFFECTIVE FOR INSOMNIA, PT. DROWSY. OXICODONE EFFECTIVE FOR PAIN PER PT.
--- NOTE | 2019-06-01 04:42 | NUR ---
24 HR chart check completed.
--- NOTE | 2019-06-01 08:20 | NUR ---
PATIENT TO OR FOR BRONCHOSCOPY AT THIS TIME.
--- NOTE | 2019-06-01 09:30 | NUR ---
Cushion Assembler in to see patient. No new needs or request at this time. She denies any home needs. When medically stable she will be discharged to home.
--- NOTE | 2019-06-01 10:23 | NUR ---
PATIENT RETURNED FROM BRONCHOSCOPY PROCEDURE, SEE SHIFT ASSESSMENTS FOR DETAILS
--- NOTE | 2019-06-01 10:46 | NUR ---
MEDICATED WITH PRN PO ATIVAN FOR ANXIETY.
--- NOTE | 2019-06-01 12:00 | NUR ---
PRN PO OXYCODONE AND ATIVAN EFFECTIVE, PER PATIENT.
--- NOTE | 2019-06-01 16:47 | NUR ---
MEDICATED WITH PRN PO OXYCODONE FOR GENERALIZED PAIN.
--- NOTE | 2019-06-01 22:59 | NUR ---
OXICODONE GIVEN PER ORDER FOR PAIN BACK AND LEGS RATED "10" SEE MAR. RESTORIL FOR INSOMNIA AND ATIVAN FOR ANXIETY GIVEN PER ORDER. SEE MAR.
--- NOTE | 2019-06-01 23:55 | NUR ---
OXICODONE EFFECTIVE FOR PAIN. RESTORIL AND ATIVAN EFFECTIVE FOR INSOMNIA AND ANXIETY PT. DROWSY AND FALLING TO SLEEP.
[2019-06-02] VITALS: BP 114/55
--- NOTE | 2019-06-02 01:28 | NUR ---
24 HR chart check completed.
[2019-06-02 06:32] LABS: HEMATOCRIT 42.5 % (37.0-47.0); HEMOGLOBIN 13.7 g/dl (12.0-16.0); MEAN CELL VOLUME 92.6 fl (81.0-99.0); MEAN CORPUSCULAR HGB 29.8 pg (27.0-31.0); MEAN CORPUSCULAR HGB CONC 32.2 g/dl (33.0-37.0); MEAN PLATELET VOLUME 8.9 fl (9.6-12.3); PLATELET COUNT AUTOMATED 404 10*3/uL (130-400); RED BLOOD COUNT 4.59 10*6/uL (4.10-5.10); RED CELL DISTRI WIDTH 12.6 % (0-14.5); WHITE BLOOD COUNT 12.5 10*3/uL (4.8-10.8)
[2019-06-02 06:47] LABS: CREATININE 0.62 mg/dL (0.55-1.02)
[2019-06-02 07:03] LABS: BASOPHILS 1 % (0-1); PLATELET SUFFICIENCY HIGH (NORMAL); POLYCHROMASIA SLIGHT; TOTAL CELLS COUNTED 100 #CELLS
[2019-06-02 08:00] VITALS: BP 118/68
--- NOTE | 2019-06-02 09:00 | NUR ---
case management visits with patient, she will return home when medically stable and denies any home needs, case management will follow
--- NOTE | 2019-06-02 10:02 | NUR ---
DR PARIKH ROUNDED AND SEEN PT.ASKED DR PARIKH AT THIS TIME ABOUT CLEARING PT FOR D/C PER HOMER PICKARD'S REQUEST. HE STATED THAT HE "WOULD REVIEW HER CXR AND LET YOU KNOW LATER".
[2019-06-02 12:00] VITALS: BP 100/56
[2019-06-02 12:03] LABS: ACID FAST SPEC PROCESSING Concentration (.)
[2019-06-02 16:00] VITALS: BP 120/68
[2019-06-02 20:00] VITALS: BP 101/55
[2019-06-03] VITALS: BP 104/64
--- NOTE | 2019-06-03 04:02 | NUR ---
24 HR chart check completed.
--- NOTE | 2019-06-03 05:23 | NUR ---
OXICODONE GIVEN PER ORDER FOR PAIN IN RIGHT SHOULDER RATED "7". SEE MAR.
[2019-06-03 07:47] LABS: BASO # 0.1 10*3/uL (0.0-0.1); EOS # 0.2 10*3/uL (0.0-0.4); EOS % 1.9 % (1.0-4.0); HEMATOCRIT 40.3 % (37.0-47.0); HEMOGLOBIN 13.1 g/dl (12.0-16.0); LYMPH # 3.4 10*3/uL (1.3-4.4); LYMPH % 28.3 % (27.0-41.0); MEAN CELL VOLUME 93.5 fl (81.0-99.0); MEAN CORPUSCULAR HGB 30.4 pg (27.0-31.0); MEAN CORPUSCULAR HGB CONC 32.5 g/dl (33.0-37.0); MEAN PLATELET VOLUME 8.9 fl (9.6-12.3); MONO # 0.8 10*3/uL (0.1-1.0); MONO % 6.9 % (3.0-9.0); NEUT # 7.2 10*3/uL (2.3-7.9); NEUT % 60.1 % (47.0-73.0); PLATELET COUNT AUTOMATED 425 10*3/uL (130-400); RED BLOOD COUNT 4.31 10*6/uL (4.10-5.10); RED CELL DISTRI WIDTH 12.7 % (0-14.5)
[2019-06-03 07:57] LABS: BUN 7 mg/dl (7-24); CHLORIDE 97 mmol/L (98-107); CREATININE 0.63 mg/dL (0.55-1.02); PHOSPHOROUS 4.2 mg/dL (2.5-4.9); SODIUM 134 mmol/L (136-145)
[2019-06-03 12:00] VITALS: BP 162/66
[2019-06-03] MEDS ORDERED: AZITHROMYCIN500 M2 PO (12:40)
--- NOTE | 2019-06-03 15:24 | NUR ---
RIGHT SUBCLAVIAN CVC REMOVED PER PHYSICIAN ORDER.TIP REMAINS INTACT. PT TOLERATED WELL.AWAITING DAUGHTER'S ARRIVAL TO TRANSPORT PT HOME.
--- NOTE | 2019-06-03 15:56 | NUR ---
OXY 10 MG GIVEN FOR C/O PAON, 12/31.
--- NOTE | 2019-06-03 15:57 | NUR ---
DR YUAN NOTIFIED OF NEW CONSULT FOR CP/PREVIOUS CARDIAC STENTS. HE WILL ROUND AND SEE PT IN AM.
--- NOTE | 2019-06-03 17:10 | NUR ---
PRIOR TO D/C PT STATES SHE HAS O2 BUT HOSPICE SUPPLIED O2. PT REFUSED TO STAY AND DAUGHTER STATES SHE WILL CALL IN AM REGARDING HOSPICE AND OXYGEN.
--- NOTE | 2019-06-03 17:21 | NUR ---
Discharge instructions reviewed with patient/family. Patient receptive and verbalizes understanding. Follow-up care arranged. Written instructions given to patient/family. CHRISTINA BLOOM
== END 2019-06-03 17:21 | disposition home or self-care (01) | DRG 871 ==
LOC: ED 20:23 → ICCU 22:49 → 4E 22:49 → ICCU 23:28 → 4E 05-26 13:36
PROVIDERS: Emergency Medicine; Family Medicine; Internal Medicine; Internal Medicine Critical Care Medicine; Internal Medicine Nephrology; Registered Nurse; Student in an Organized Health Care Education/Training Program; ADMIT Internal Medicine
DX: A41.9 Sepsis, unspecified organism (principal); E43 Unspecified severe protein-calorie malnutrition; J15.6 Pneumonia due to other Gram-negative bacteria; J96.21 Acute and chronic respiratory failure with hypoxia; N39.0 Urinary tract infection, site not specified; I47.1 Supraventricular tachycardia; I50.32 Chronic diastolic (congestive) heart failure; E87.0 Hyperosmolality and hypernatremia; J44.1 Chronic obstructive pulmonary disease with (acute) exacerbation; J44.0 Chronic obstructive pulmonary disease with (acute) lower respiratory infection; J20.9 Acute bronchitis, unspecified; K70.30 Alcoholic cirrhosis of liver without ascites; E87.6 Hypokalemia; R65.20 Severe sepsis without septic shock; E87.8 Other disorders of electrolyte and fluid balance, not elsewhere classified; E83.42 Hypomagnesemia; C50.919 Malignant neoplasm of unspecified site of unspecified female breast; G89.29 Other chronic pain; R73.9 Hyperglycemia, unspecified; I48.0 Paroxysmal atrial fibrillation; F17.210 Nicotine dependence, cigarettes, uncomplicated; I11.0 Hypertensive heart disease with heart failure; J98.09 Other diseases of bronchus, not elsewhere classified; Z71.6 Tobacco abuse counseling; Z68.30 Body mass index [BMI] 30.0-30.9, adult; Z88.0 Allergy status to penicillin; Z88.6 Allergy status to analgesic agent; Z80.41 Family history of malignant neoplasm of ovary; Z79.899 Other long term (current) drug therapy

== ENCOUNTER 2019-06-08 15:18 | Inpatient (IN) | payer OTHER ==
[~2019-06-08] VITALS: Ht 165.1 cm; Wt 70.5 kg
[~2019-06-08 15:18] MED LIST changes: +ATIVAN0.5 MG PO; +AZITHROMYCIN500 M2 PO; +LACTULOSE10 GM/15 M PO; +LASIX40 MG PO; +MECLIZINE HYD12.5 MG PO; +OXYCODONE HCL5 MG PO; +ROXICODONE5 MG PO; +SPIRONOLACTONE100 MG PO
[2019-06-08 15:25] VITALS: BP 153/95
[2019-06-08 16:36] LABS: BASO # 0.1 10*3/uL (0.0-0.1); BASO % 0.8 % (0.0-1.0); EOS # 0.1 10*3/uL (0.0-0.4); EOS % 0.8 % (1.0-4.0); HEMATOCRIT 43.1 % (37.0-47.0); HEMOGLOBIN 14.8 g/dl (12.0-16.0); LYMPH # 4.9 10*3/uL (1.3-4.4); LYMPH % 45.9 % (27.0-41.0); MEAN CELL VOLUME 87.4 fl (81.0-99.0); MEAN CORPUSCULAR HGB CONC 34.3 g/dl (33.0-37.0); MONO # 0.9 10*3/uL (0.1-1.0); MONO % 8.4 % (3.0-9.0); NEUT # 4.7 10*3/uL (2.3-7.9); NEUT % 43.5 % (47.0-73.0); PLATELET COUNT AUTOMATED 585 10*3/uL (130-400); RED BLOOD COUNT 4.93 10*6/uL (4.10-5.10); RED CELL DISTRI WIDTH 12.2 % (0-14.5); WHITE BLOOD COUNT 10.6 10*3/uL (4.8-10.8)
[2019-06-08 16:52] LABS: ALBUMIN 3.5 gm/dl (3.1-4.5); ALKALINE PHOSPHATASE 137 U/L (45-117); BUN 8 mg/dl (7-24); CHLORIDE 88 mmol/L (98-107); CREATININE 0.71 mg/dL (0.55-1.02); POTASSIUM 3.5 mmol/L (3.5-5.1); SGOT/AST 17 IU/L (3-35); SGPT/ALT 18 U/L (12-78); SODIUM 126 mmol/L (136-145); TOTAL PROTEIN 7.6 gm/dL (6.4-8.2); TROPONIN I < 0.015 ng/ml (<0.045)
[2019-06-08 17:30] VITALS: BP 172/84
[2019-06-08 21:05] VITALS: BP 170/70
[2019-06-08] MEDS ORDERED: Carafate1 GM PO (21:43)
[2019-06-08] MEDS ORDERED: Ipratropium Brom3 ML INH (21:51)
[2019-06-08 23:45] VITALS: BP 133/55
[2019-06-09 06:49] LABS: HEMATOCRIT 38.4 % (37.0-47.0); MEAN CELL VOLUME 88.9 fl (81.0-99.0); MEAN CORPUSCULAR HGB 30.1 pg (27.0-31.0); MEAN CORPUSCULAR HGB CONC 33.9 g/dl (33.0-37.0); MEAN PLATELET VOLUME 9.1 fl (9.6-12.3); PLATELET COUNT AUTOMATED 540 10*3/uL (130-400); RED BLOOD COUNT 4.32 10*6/uL (4.10-5.10); RED CELL DISTRI WIDTH 12.4 % (0-14.5)
[2019-06-09 07:21] LABS: BUN 6 mg/dl (7-24); CHLORIDE 96 mmol/L (98-107); CREATININE 0.62 mg/dL (0.55-1.02); PHOSPHOROUS 3.2 mg/dL (2.5-4.9); POTASSIUM 3.9 mmol/L (3.5-5.1); SODIUM 128 mmol/L (136-145)
[2019-06-09 08:00] VITALS: BP 128/63
[2019-06-09 08:00] LABS: PLATELET SUFFICIENCY HIGH (NORMAL); TOTAL CELLS COUNTED 100 #CELLS
[2019-06-09 12:00] VITALS: BP 146/63
[2019-06-09 16:00] VITALS: BP 131/46
[2019-06-09 20:00] VITALS: BP 151/90
[2019-06-10 06:18] LABS: BASO # 0.1 10*3/uL (0.0-0.1); BASO % 1.2 % (0.0-1.0); EOS # 0.2 10*3/uL (0.0-0.4); EOS % 2.3 % (1.0-4.0); HEMATOCRIT 38.7 % (37.0-47.0); HEMOGLOBIN 13.2 g/dl (12.0-16.0); LYMPH # 4.2 10*3/uL (1.3-4.4); LYMPH % 51.1 % (27.0-41.0); MEAN CELL VOLUME 90.4 fl (81.0-99.0); MEAN CORPUSCULAR HGB 30.8 pg (27.0-31.0); MEAN CORPUSCULAR HGB CONC 34.1 g/dl (33.0-37.0); MEAN PLATELET VOLUME 8.9 fl (9.6-12.3); MONO # 0.9 10*3/uL (0.1-1.0); MONO % 10.7 % (3.0-9.0); NEUT # 2.8 10*3/uL (2.3-7.9); NEUT % 34.1 % (47.0-73.0); PLATELET COUNT AUTOMATED 453 10*3/uL (130-400); RED BLOOD COUNT 4.28 10*6/uL (4.10-5.10); RED CELL DISTRI WIDTH 12.5 % (0-14.5); WHITE BLOOD COUNT 8.2 10*3/uL (4.8-10.8)
[2019-06-10 06:51] LABS: ALBUMIN 3.1 gm/dl (3.1-4.5); ALKALINE PHOSPHATASE 120 U/L (45-117); BUN 7 mg/dl (7-24); CHLORIDE 94 mmol/L (98-107); CREATININE 0.68 mg/dL (0.55-1.02); LDH 133 U/L (84-246); SGOT/AST 13 IU/L (3-35); SGPT/ALT 17 U/L (12-78); SODIUM 126 mmol/L (136-145)
[2019-06-10 08:00] VITALS: BP 111/72
[2019-06-10] MEDS ORDERED: VENT7GM INH (11:53)
[2019-06-10] MEDS ORDERED: ATIVAN0.5 MG PO (11:53)
[2019-06-10] MEDS ORDERED: DOXYCYCLINE100 M3 PO (11:53)
[2019-06-10] MEDS ORDERED: TAMIFLU 75MG CA75 MG PO (11:53)
[2019-06-10] MEDS ORDERED: ROXICODONE5 MG PO (11:53)
[2019-06-10] MEDS ORDERED: HYDROXYCHLOROQ200 M1 PO (11:53)
== END 2019-06-10 15:38 | disposition hospice, home (50) | DRG 177 ==
LOC: ED 15:18 → EDHOLD 18:17 → 5E 18:17
PROVIDERS: Family Medicine; Internal Medicine; Nurse Practitioner Family; ADMIT Family Medicine
DX: J69.0 Pneumonitis due to inhalation of food and vomit (principal); E43 Unspecified severe protein-calorie malnutrition; E87.1 Hypo-osmolality and hyponatremia; I50.30 Unspecified diastolic (congestive) heart failure; F10.29 Alcohol dependence with unspecified alcohol-induced disorder; Z68.25 Body mass index [BMI] 25.0-25.9, adult; G44.219 Episodic tension-type headache, not intractable; M79.10 Myalgia, unspecified site; R19.7 Diarrhea, unspecified; D47.3 Essential (hemorrhagic) thrombocythemia; E87.8 Other disorders of electrolyte and fluid balance, not elsewhere classified; R73.9 Hyperglycemia, unspecified; R03.0 Elevated blood-pressure reading, without diagnosis of hypertension; J44.9 Chronic obstructive pulmonary disease, unspecified; G89.29 Other chronic pain; F41.9 Anxiety disorder, unspecified; Z71.6 Tobacco abuse counseling; K70.30 Alcoholic cirrhosis of liver without ascites; F17.200 Nicotine dependence, unspecified, uncomplicated; Z66 Do not resuscitate; Z51.5 Encounter for palliative care; Z88.0 Allergy status to penicillin; Z88.6 Allergy status to analgesic agent; Z88.5 Allergy status to narcotic agent; Z79.899 Other long term (current) drug therapy; Z80.41 Family history of malignant neoplasm of ovary; Z85.3 Personal history of malignant neoplasm of breast

== ENCOUNTER → 2020-01-25 | Outpatient (CLI) | payer MEDICARE, OTHER ==
[~2020-01-25] MED LIST changes: +Carafate1 GM PO; +DOXYCYCLINE100 M3 PO; +HYDROXYCHLOROQ200 M1 PO; +Ipratropium Brom3 ML INH; +TAMIFLU 75MG CA75 MG PO; +VENT7GM INH
[2020-01-25 11:46] LABS: BILIRUBIN Negative (Negative); BLOOD Negative (Negative); CLARITY Cloudy (Clear); COLOR Yellow (Yellow); GLUCOSE Negative (Negative); KETONE Negative (Negative); LEUKO ESTERASE Trace (Negative); NITRITE Negative (Negative); UROBILINOGEN 0.2 E.U./dl (0.0-1.0)
[2020-01-25 11:54] LABS: BASO # 0.1 10*3/uL (0.0-0.1); BASO % 0.6 % (0.0-1.0); EOS # 0.1 10*3/uL (0.0-0.4); EOS % 1.2 % (1.0-4.0); HEMATOCRIT 44.9 % (37.0-47.0); LYMPH # 4.1 10*3/uL (1.3-4.4); LYMPH % 38.5 % (27.0-41.0); MEAN CELL VOLUME 93.3 fl (81.0-99.0); MEAN CORPUSCULAR HGB 30.1 pg (27.0-31.0); MEAN CORPUSCULAR HGB CONC 32.3 g/dl (33.0-37.0); MEAN PLATELET VOLUME 9.5 fl (9.6-12.3); MONO # 0.5 10*3/uL (0.1-1.0); MONO % 4.8 % (3.0-9.0); NEUT # 5.8 10*3/uL (2.3-7.9); NEUT % 54.6 % (47.0-73.0); PLATELET COUNT AUTOMATED 331 10*3/uL (130-400); RED BLOOD COUNT 4.81 10*6/uL (4.10-5.10); RED CELL DISTRI WIDTH 12.8 % (0-14.5); WHITE BLOOD COUNT 10.6 10*3/uL (4.8-10.8)
[2020-01-25 12:17] LABS: ALBUMIN 4.2 gm/dl (3.1-4.5); ALKALINE PHOSPHATASE 107 U/L (45-117); BUN 9 mg/dl (7-24); CHLORIDE 102 mmol/L (98-107); CHOLESTEROL 242 mg/dL (<200); CREATININE 0.77 mg/dL (0.55-1.02); FREE T4 1.03 ng/dl (0.76-1.46); HDL CHOLESTEROL 62 mg/dl (40-60); LDL CHOLESTEROL 157 mg/dL (9-159); POTASSIUM 4.4 mmol/L (3.5-5.1); SGOT/AST 27 IU/L (3-35); SGPT/ALT 28 U/L (12-78); SODIUM 138 mmol/L (136-145); TOTAL PROTEIN 8.2 gm/dL (6.4-8.2); TRIGLYCERIDES 117 mg/dl (<150); VLDL CHOLESTEROL 23 mg/dL (6-40)
[2020-01-25 12:58] LABS: BACTERIA 2+; EPITHELIAL CELLS 41-50
== END | disposition home or self-care (01) ==
LOC: LAB 11:10
PROVIDERS: ATTEND Internal Medicine
DX: N39.0 Urinary tract infection, site not specified (principal); K72.90 Hepatic failure, unspecified without coma; R73.01 Impaired fasting glucose; E03.9 Hypothyroidism, unspecified; E78.5 Hyperlipidemia, unspecified; E55.9 Vitamin D deficiency, unspecified; Z79.899 Other long term (current) drug therapy

== ENCOUNTER → 2020-07-14 | Outpatient (CLI) | payer OTHER, MEDICAID ==
[2020-07-14 11:59] LABS: ALBUMIN 3.8 gm/dl (3.1-4.5); BILIRUBIN, DIRECT 0.1 mg/dL (0.0-0.2)
== END | disposition home or self-care (01) ==
LOC: LAB 11:01
PROVIDERS: ATTEND Internal Medicine Gastroenterology
DX: K74.60 Unspecified cirrhosis of liver (principal)

== ENCOUNTER → 2020-08-11 | Outpatient (CLI) | payer OTHER, MEDICAID ==
[2020-08-11 14:08] LABS: BUN 18 mg/dl (7-24); CHLORIDE 99 mmol/L (98-107); POTASSIUM 4.3 mmol/L (3.5-5.1); SODIUM 132 mmol/L (136-145)
[2020-08-12 05:06] LABS: ALPHA-1-ANTITRYPSIN, SERUM 99 mg/dL (101-187); IMMUNOGLOBULIN G, QNT 981 mg/dL (586-1602)
[2020-08-12 08:08] LABS: HEP B CORE AB, IGM Negative (Negative); HEPATITIS B SURFACE AB Non Reactive (.); HEPATITIS B SURFACE AG Negative (Negative); HEPATITIS C VIRUS ANTIBODY <0.1 s/co (0.0-0.9)
[2020-08-12 15:06] LABS: ANTI-SMOOTH MUSCLE ANTIBODY 6 Units (0-19)
== END | disposition home or self-care (01) ==
LOC: LAB 13:11
PROVIDERS: ATTEND Internal Medicine
DX: K74.60 Unspecified cirrhosis of liver (principal)

== ENCOUNTER → 2020-08-29 | Outpatient (CLI) | payer OTHER, MEDICAID ==
[2020-08-29 16:44] LABS: BASO % 0.6 % (0.0-1.0); EOS # 0.1 10*3/uL (0.0-0.4); EOS % 1.3 % (1.0-4.0); HEMATOCRIT 39.8 % (37.0-47.0); LYMPH # 3.6 10*3/uL (1.3-4.4); LYMPH % 32.8 % (27.0-41.0); MEAN CELL VOLUME 91.5 fl (81.0-99.0); MEAN CORPUSCULAR HGB 30.3 pg (27.0-31.0); MEAN CORPUSCULAR HGB CONC 33.2 g/dl (33.0-37.0); MEAN PLATELET VOLUME 9.3 fl (9.6-12.3); MONO # 0.8 10*3/uL (0.1-1.0); MONO % 7.6 % (3.0-9.0); NEUT # 6.3 10*3/uL (2.3-7.9); NEUT % 57.1 % (47.0-73.0); PLATELET COUNT AUTOMATED 313 10*3/uL (130-400); RED BLOOD COUNT 4.35 10*6/uL (4.10-5.10); RED CELL DISTRI WIDTH 12.1 % (0-14.5)
[2020-08-29 16:45] LABS: BASO # 0.1 10*3/uL (0.0-0.1)
== END | disposition home or self-care (01) ==
LOC: LAB 15:54
PROVIDERS: ATTEND Nurse Practitioner
DX: K74.60 Unspecified cirrhosis of liver (principal)

== ENCOUNTER → 2020-10-26 | Outpatient (CLI) | payer OTHER, MEDICAID ==
[2020-10-26 15:35] LABS: ALBUMIN 4.1 gm/dl (3.1-4.5); ALKALINE PHOSPHATASE 119 U/L (45-117); BUN 13 mg/dl (7-24); CHLORIDE 97 mmol/L (98-107); CHOLESTEROL 226 mg/dL (<200); CREATININE 0.83 mg/dL (0.55-1.02); FREE T4 1.02 ng/dl (0.76-1.46); LDL CHOLESTEROL 150 mg/dL (9-159); SGOT/AST 17 IU/L (3-35); SGPT/ALT 19 U/L (12-78); SODIUM 133 mmol/L (136-145); TRIGLYCERIDES 80 mg/dl (<150)
[2020-10-26 15:48] LABS: BILIRUBIN Negative (Negative); BLOOD Negative (Negative); CLARITY Clear (Clear); COLOR Yellow (Yellow); GLUCOSE Negative (Negative); KETONE Negative (Negative); LEUKO ESTERASE Negative (Negative); NITRITE Negative (Negative); PH 5.5 (4.5-8.0); SPECIFIC GRAVITY <= 1.005 (1.001-1.030); UROBILINOGEN 0.2 E.U./dl (0.0-1.0)
[2020-10-26 15:57] LABS: BACTERIA TRACE; WBC 0-2 wbc/hpf (0-5)
[2020-10-26 16:56] LABS: BASO # 0.1 10*3/uL (0.0-0.1); BASO % 0.5 % (0.0-1.0); EOS # 0.1 10*3/uL (0.0-0.4); EOS % 0.7 % (1.0-4.0); HEMATOCRIT 40.8 % (37.0-47.0); LYMPH # 3.6 10*3/uL (1.3-4.4); LYMPH % 30.4 % (27.0-41.0); MEAN CELL VOLUME 90.1 fl (81.0-99.0); MEAN CORPUSCULAR HGB CONC 33.3 g/dl (33.0-37.0); MONO # 0.7 10*3/uL (0.1-1.0); MONO % 5.8 % (3.0-9.0); NEUT # 7.4 10*3/uL (2.3-7.9); NEUT % 62.1 % (47.0-73.0); PLATELET COUNT AUTOMATED 331 10*3/uL (130-400); RED BLOOD COUNT 4.53 10*6/uL (4.10-5.10); RED CELL DISTRI WIDTH 12.2 % (0-14.5); WHITE BLOOD COUNT 11.9 10*3/uL (4.8-10.8)
== END | disposition home or self-care (01) ==
LOC: LAB 14:37
PROVIDERS: ATTEND Internal Medicine
DX: E78.5 Hyperlipidemia, unspecified (principal); E03.9 Hypothyroidism, unspecified; N39.0 Urinary tract infection, site not specified; R73.01 Impaired fasting glucose; E72.20 Disorder of urea cycle metabolism, unspecified; Z79.899 Other long term (current) drug therapy

== ENCOUNTER 2021-04-13 17:37 | Emergency (ER) | payer OTHER, MEDICAID ==
[~2021-04-13] VITALS: Ht 162.5 cm; Wt 86.2 kg
[2021-04-13 18:16] LABS: BASO # 0.1 10*3/uL (0.0-0.1); BASO % 0.4 % (0.0-1.0); EOS # 0.1 10*3/uL (0.0-0.4); EOS % 0.8 % (1.0-4.0); HEMATOCRIT 41.8 % (37.0-47.0); LYMPH # 3.1 10*3/uL (1.3-4.4); LYMPH % 26.7 % (27.0-41.0); MEAN CELL VOLUME 89.9 fl (81.0-99.0); MEAN CORPUSCULAR HGB 29.9 pg (27.0-31.0); MEAN CORPUSCULAR HGB CONC 33.3 g/dl (33.0-37.0); MEAN PLATELET VOLUME 9.1 fl (9.6-12.3); MONO # 0.9 10*3/uL (0.1-1.0); MONO % 7.4 % (3.0-9.0); NEUT # 7.5 10*3/uL (2.3-7.9); NEUT % 64.4 % (47.0-73.0); PLATELET COUNT AUTOMATED 319 10*3/uL (130-400); RED BLOOD COUNT 4.65 10*6/uL (4.10-5.10); WHITE BLOOD COUNT 11.7 10*3/uL (4.8-10.8)
[2021-04-13 18:32] LABS: ALBUMIN 3.9 gm/dl (3.1-4.5); ALKALINE PHOSPHATASE 99 U/L (45-117); BUN 12 mg/dl (7-24); CHLORIDE 93 mmol/L (98-107); CREATININE 0.87 mg/dL (0.55-1.02); POTASSIUM 3.7 mmol/L (3.5-5.1); SGOT/AST 21 IU/L (3-35); SGPT/ALT 16 U/L (12-78); SODIUM 131 mmol/L (136-145); TOTAL PROTEIN 7.8 gm/dL (6.4-8.2)
[2021-04-13] MEDS ORDERED: ALBUTEROL S5 MG/1 ML INH (19:41)
[2021-04-14] MEDS ORDERED: VENTOLIN 02.5 MG/3 M INH (09:24)
== END 2021-04-13 19:42 | disposition home or self-care (01) ==
LOC: ED 17:37
PROVIDERS: Nurse Practitioner Family
DX: J44.1 Chronic obstructive pulmonary disease with (acute) exacerbation (principal); Z88.0 Allergy status to penicillin; Z88.6 Allergy status to analgesic agent; Z79.899 Other long term (current) drug therapy

== ENCOUNTER → 2021-06-22 | Outpatient (CLI) | payer OTHER, MEDICAID ==
[~2021-06-22] MED LIST changes: +ALBUTEROL S5 MG/1 ML INH; +VENTOLIN 02.5 MG/3 M INH
[2021-06-22 14:34] LABS: BILIRUBIN Negative (Negative); BLOOD Negative (Negative); CLARITY Cloudy (Clear); COLOR Yellow (Yellow); GLUCOSE Negative (Negative); KETONE Negative (Negative); LEUKO ESTERASE Negative (Negative); NITRITE Negative (Negative); SPECIFIC GRAVITY <= 1.005 (1.001-1.030); UROBILINOGEN 0.2 E.U./dl (0.0-1.0)
[2021-06-22 14:36] LABS: BASO # 0.1 10*3/uL (0.0-0.1); BASO % 0.6 % (0.0-1.0); EOS # 0.2 10*3/uL (0.0-0.4); EOS % 1.6 % (1.0-4.0); HEMATOCRIT 43.5 % (37.0-47.0); LYMPH # 3.8 10*3/uL (1.3-4.4); LYMPH % 35.1 % (27.0-41.0); MEAN CELL VOLUME 90.6 fl (81.0-99.0); MEAN CORPUSCULAR HGB 29.8 pg (27.0-31.0); MEAN CORPUSCULAR HGB CONC 32.9 g/dl (33.0-37.0); MEAN PLATELET VOLUME 9.5 fl (9.6-12.3); MONO # 0.6 10*3/uL (0.1-1.0); MONO % 5.9 % (3.0-9.0); NEUT # 6.2 10*3/uL (2.3-7.9); NEUT % 56.3 % (47.0-73.0); PLATELET COUNT AUTOMATED 354 10*3/uL (130-400); RED CELL DISTRI WIDTH 12.6 % (0-14.5); WHITE BLOOD COUNT 10.9 10*3/uL (4.8-10.8)
[2021-06-22 15:04] LABS: ALKALINE PHOSPHATASE 115 U/L (45-117); BUN 6 mg/dl (7-24); CHLORIDE 95 mmol/L (98-107); CHOLESTEROL 231 mg/dL (<200); FREE T4 1.06 ng/dl (0.76-1.46); LDL CHOLESTEROL 158 mg/dL (9-159); POTASSIUM 4.1 mmol/L (3.5-5.1); SGOT/AST 17 IU/L (3-35); SGPT/ALT 13 U/L (12-78); SODIUM 130 mmol/L (136-145); TOTAL PROTEIN 7.9 gm/dL (6.4-8.2); TRIGLYCERIDES 86 mg/dl (<150)
[2021-06-22 16:53] LABS: BACTERIA 3+; EPITHELIAL CELLS 0-2
== END | disposition home or self-care (01) ==
LOC: LAB 13:53
PROVIDERS: ATTEND Internal Medicine
DX: E03.9 Hypothyroidism, unspecified (principal); E78.5 Hyperlipidemia, unspecified; N39.0 Urinary tract infection, site not specified; R73.01 Impaired fasting glucose; Z79.899 Other long term (current) drug therapy

== ENCOUNTER → 2021-10-22 | Outpatient (CLI) | payer OTHER, MEDICAID | END | disposition home or self-care (01) | LOC: LAB 15:46 | PROVIDERS: ATTEND Internal Medicine | DX: E72.29 Other disorders of urea cycle metabolism (principal) ==

== ENCOUNTER 2021-10-24 20:44 | Inpatient (IN) | payer OTHER, MEDICAID ==
[~2021-10-24] VITALS: Ht 160 cm; Wt 88.9 kg
[2021-10-24 20:55] VITALS: BP 134/72
[2021-10-24 21:23] LABS: HEMATOCRIT 46.1 % (37.0-47.0); MEAN CELL VOLUME 85.4 fl (81.0-99.0); MEAN CORPUSCULAR HGB 29.3 pg (27.0-31.0); MEAN CORPUSCULAR HGB CONC 34.3 g/dl (33.0-37.0); MEAN PLATELET VOLUME 9.6 fl (9.6-12.3); PLATELET COUNT AUTOMATED 410 10*3/uL (130-400); RED CELL DISTRI WIDTH 12.1 % (0-14.5); WHITE BLOOD COUNT 21.2 10*3/uL (4.8-10.8)
[2021-10-24 21:27] LABS: MANUAL DIFF REFLEX YES
[2021-10-24 21:45] VITALS: BP 151/78
[2021-10-24 21:47] LABS: PLATELET SUFFICIENCY HIGH (NORMAL); TOTAL CELLS COUNTED 100 #CELLS
[2021-10-24 21:57] LABS: ALKALINE PHOSPHATASE 149 U/L (45-117); BUN 15 mg/dl (7-24); CHLORIDE 92 mmol/L (98-107); LIPASE 177 U/L (73-393); POTASSIUM 2.5 mmol/L (3.5-5.1); SGOT/AST 26 IU/L (3-35); SGPT/ALT 11 U/L (12-78); SODIUM 135 mmol/L (136-145); TOTAL PROTEIN 8.5 gm/dL (6.4-8.2)
[2021-10-24 22:05] LABS: ABG BASE EXCESS 6.4 mmol/L (-2.0-2.0); ARTERIAL BLOOD GAS PH 7.456 (7.35-7.45); ARTERIAL BLOOD GAS PO2 51.2 (80-90)
[2021-10-24 22:30] LABS: BILIRUBIN 2+ (Negative); BLOOD Trace-Lysed (Negative); CLARITY Cloudy (Clear); COLOR Dark Yellow (Yellow); GLUCOSE Negative (Negative); KETONE Trace (Negative); LEUKO ESTERASE Trace (Negative); NITRITE Negative (Negative); SPECIFIC GRAVITY 1.015 (1.001-1.030)
[2021-10-24 22:37] LABS: BACTERIA 1+
[2021-10-24 23:06] VITALS: BP 145/81
[2021-10-25] VITALS (7 sets, daily range): BP systolic 100–151; BP diastolic 0–89
[2021-10-25] MEDS ORDERED: PROTONIX TR40 M1 PO (05:04)
[2021-10-25] MEDS ORDERED: COZAAR50 M1 PO (05:05)
[2021-10-25] MEDS ORDERED: FLUOXETINE HCL40 MG PO (05:06)
[2021-10-25] MEDS ORDERED: LIPITOR20 MG PO (05:07)
[2021-10-25 06:16] LABS: CREATININE 2.24 mg/dL (0.55-1.02); POTASSIUM 3.2 mmol/L (3.5-5.1); TOTAL PROTEIN 7.7 gm/dL (6.4-8.2)
[2021-10-25 06:25] LABS: HEMATOCRIT 44.7 % (37.0-47.0); MEAN CELL VOLUME 87.8 fl (81.0-99.0); MEAN CORPUSCULAR HGB 29.7 pg (27.0-31.0); MEAN CORPUSCULAR HGB CONC 33.8 g/dl (33.0-37.0); MEAN PLATELET VOLUME 10.2 fl (9.6-12.3); PLATELET COUNT AUTOMATED 358 10*3/uL (130-400); RED BLOOD COUNT 5.09 10*6/uL (4.10-5.10); RED CELL DISTRI WIDTH 12.2 % (0-14.5)
[2021-10-25 06:48] LABS: MANUAL DIFF REFLEX YES
[2021-10-25 07:08] LABS: BURR CELLS FEW; PLATELET SUFFICIENCY NORMAL (NORMAL); TOTAL CELLS COUNTED 100 #CELLS
[2021-10-25 07:16] LABS: POLYCHROMASIA SLIGHT
[2021-10-25 13:23] LABS: MEAN CELL VOLUME 87.5 fl (81.0-99.0); MEAN CORPUSCULAR HGB CONC 34.3 g/dl (33.0-37.0); MEAN PLATELET VOLUME 9.6 fl (9.6-12.3); PLATELET COUNT AUTOMATED 290 10*3/uL (130-400); RED BLOOD COUNT 4.23 10*6/uL (4.10-5.10); RED CELL DISTRI WIDTH 12.3 % (0-14.5); WHITE BLOOD COUNT 32.9 10*3/uL (4.8-10.8)
[2021-10-25 13:27] LABS: MANUAL DIFF REFLEX YES
[2021-10-25 13:38] LABS: CREATININE 1.9 mg/dL (0.55-1.02); POTASSIUM 3.9 mmol/L (3.5-5.1); TOTAL PROTEIN 6.6 gm/dL (6.4-8.2)
[2021-10-25 13:45] LABS: TOTAL CELLS COUNTED 100 #CELLS
[2021-10-25 13:46] LABS: POLYCHROMASIA SLIGHT
[2021-10-25 13:47] LABS: PLATELET SUFFICIENCY NORMAL (NORMAL)
[2021-10-25 13:48] LABS: OVALOCYTES FEW
== END 2021-10-25 21:48 | disposition short-term general hospital (02) | DRG 871 ==
LOC: ED 20:44 → ICCU 10-25 03:06 → EDHOLD 10-25 03:06 → 4E 10-25 04:24 → ICCU 10-25 12:53
PROVIDERS: Emergency Medicine; Internal Medicine; Physical Therapist; ADMIT Internal Medicine; ATTEND Internal Medicine
PROC: 03HY32Z Insertion of Monitoring Device into Upper Artery, Percutaneous Approach (ICD-10-PCS; principal; 2021-10-25)
DX: A41.9 Sepsis, unspecified organism (principal); I21.4 Non-ST elevation (NSTEMI) myocardial infarction; N17.0 Acute kidney failure with tubular necrosis; J96.01 Acute respiratory failure with hypoxia; N39.0 Urinary tract infection, site not specified; E87.2 Acidosis; E87.3 Alkalosis; I50.30 Unspecified diastolic (congestive) heart failure; R65.20 Severe sepsis without septic shock; E87.6 Hypokalemia; E83.42 Hypomagnesemia; R31.9 Hematuria, unspecified; D75.839 Thrombocytosis, unspecified; R73.9 Hyperglycemia, unspecified; E87.8 Other disorders of electrolyte and fluid balance, not elsewhere classified; F41.9 Anxiety disorder, unspecified; G89.29 Other chronic pain; F17.210 Nicotine dependence, cigarettes, uncomplicated; K70.30 Alcoholic cirrhosis of liver without ascites; J43.9 Emphysema, unspecified; Z88.6 Allergy status to analgesic agent; Z88.0 Allergy status to penicillin; Z98.891 History of uterine scar from previous surgery; Z80.41 Family history of malignant neoplasm of ovary

== ENCOUNTER 2023-04-28 18:58 | Emergency (ER) | payer OTHER, MEDICAID ==
[~2023-04-28 18:58] MED LIST changes: +ACETAMINOPHEN325 M2 PO; +ALDACTONE50 M1 PO; +AMBIEN10 M1 PO; +CHOLESTYRAMINE L4 G1 PO; +CLOPIDOGREL75 MG PO; +COZAAR50 M1 PO; +FLUOXETINE HCL40 MG PO; +GOOD NEIGHBOR500 M2 PO; +LEVOFLOXACIN750 M2 PO; +LIPITOR20 MG PO; +LIPITOR80 MG PO; +MAG DELAY64 MG PO; +MIDODRINE HCL5 M1 PO; +Magnesium Oxid400 MG PO; +Meclizine25 MG PO; +NEURONTIN100 MG PO; +NICODERM CQ1 EAC2 T; +NICODERM CQ1 EAC2 TD; +OMNICEF300 MG PO; +PRAVASTATIN SOD80 MG PO; +PROTONIX TR40 M1 PO; +PROZAC20 MG PO; +SYNTHROID,LEVO75 MCG PO; +TOPROL XL25 MG PO; +VITAMIN B-1100 M1 PO; +ZITHROMAX250 MG PO
[2023-04-28 19:20] LABS: BASO # 0.1 10*3/uL (0.0-0.1); EOS # 0.3 10*3/uL (0.0-0.4); HEMATOCRIT 37.4 % (37.0-47.0); LYMPH # 3.1 10*3/uL (1.3-4.4); LYMPH % 33.4 % (27.0-41.0); MEAN CORPUSCULAR HGB 27.9 pg (27.0-31.0); MEAN CORPUSCULAR HGB CONC 31.3 g/dl (33.0-37.0); MEAN PLATELET VOLUME 9.4 fl (9.6-12.3); MONO # 0.7 10*3/uL (0.1-1.0); MONO % 7.4 % (3.0-9.0); NEUT # 5.2 10*3/uL (2.3-7.9); NEUT % 54.9 % (47.0-73.0); PLATELET COUNT AUTOMATED 347 10*3/uL (130-400); RED CELL DISTRI WIDTH 13.5 % (0-14.5); WHITE BLOOD COUNT 9.4 10*3/uL (4.8-10.8)
[2023-04-28 19:42] LABS: ALKALINE PHOSPHATASE 161 U/L (46-116); BUN 9 mg/dl (9-23); CHLORIDE 104 mmol/L (98-107); POTASSIUM 3.8 mmol/L (3.4-5.1); SGPT/ALT 7 U/L (5-49); TOTAL PROTEIN 6.6 gm/dL (6.0-8.0)
[2023-04-28 19:59] LABS: BILIRUBIN Negative (Negative); BLOOD Negative (Negative); CLARITY Clear (Clear); COLOR Yellow (Yellow); GLUCOSE Negative (Negative); KETONE Negative (Negative); LEUKO ESTERASE Negative (Negative); NITRITE Negative (Negative); UROBILINOGEN 0.2 E.U./dl (0.0-1.0)
[2023-04-28 20:26] LABS: BACTERIA TRACE
== END 2023-04-29 02:45 | disposition short-term general hospital (02) ==
LOC: ED 18:58
PROVIDERS: Internal Medicine
DX: R56.9 Unspecified convulsions (principal); E44.1 Mild protein-calorie malnutrition; Z68.1 Body mass index [BMI] 19.9 or less, adult; E83.42 Hypomagnesemia; J44.9 Chronic obstructive pulmonary disease, unspecified; F17.200 Nicotine dependence, unspecified, uncomplicated; Z88.0 Allergy status to penicillin; Z88.6 Allergy status to analgesic agent; Z88.5 Allergy status to narcotic agent; Z98.890 Other specified postprocedural states